=== PATIENT | female | born 1930 | race Caucasian/White ===

== ENCOUNTER 2017-03-17 08:10 | Inpatient (IN) ==
[2017-03-17] MEDS ORDERED: ONDANSETRON 4 MG/2 ML VIAL ONE (08:21)
[2017-03-17] MEDS ORDERED: ASPIRIN 325 MG TABLET PO STA (08:29)
[2017-03-17] MEDS ORDERED: SODIUM CHLORIDE 0.9% 1,000 ML IV STA (08:29)
[2017-03-17] MEDS ORDERED: ONDANSETRON 4 MG/2 ML VIAL IV STA (08:35)
[2017-03-17] MEDS ORDERED: ASPIRIN 325 MG TABLET ONE (08:45)
--- NOTE | 2017-03-17 08:46 | EKG Report ---
Stationary ECG Study [facility] ER Test Date: 03/17/2017 8:44:25 AM Pat Name: STEPHEN XIAO Department: Room: Gender: F Customer Service Analyst: : [id number] Requested by: Ivone Lieberman Order Number: [id number] Reading MD: EDER BRUNSON Intervals [place] Rate: 91 P: 999 VT: 0 QRS: 50 QRSD: 88 T: -87 QT: 379 QTc: 428 Interpretive Statements ATRIAL FIBRILLATION ST DEVIATION AND MODERATE T-WAVE ABNORMALITY, CONSIDER INFEROLATERAL Electronically Signed On 03-18-17 14:08:15 CDT by EDER BRUNSON [email or web address]
[2017-03-17 09:10] LABS: Basophils % 0.3 % (0.0-0.8); Eosinophils # 0.1 10*3/uL (0.0-0.87); Eosinophils % 0.6 % (0.00-10.9); Hematocrit 37.1 VOL% (35.7-47.0); Hemoglobin 11.7 GM/DL (12.0-16.0); Immature Granulocytes % 3.5 %; Immature Granulocytes Absolute 0.43 #; Lymphocytes # 0.3 10*3/uL (1.4-4.0); Lymphocytes % 2.3 % (21.3-54.2); Mean Corpuscular HGB Conc 31.5 GM/DL (32-36); Mean Corpuscular Hemoglobin 28 PG (27-34); Mean Corpuscular Volume 89.8 FL (87-102); Monocytes # 0.3 10*3/uL (0.11-0.8); Monocytes % 2.5 % (1.7-12.7); Neutrophils # 11.2 10*3/uL (1.4-7.4); Neutrophils % 90.8 % (38.7-73.9); Platelet Count 147 T/CUMM (130-400); Red Blood Count 4.13 MC/CUMM (3.8-5.5); Red Cell Distribution Width 16.6 % (9.3-17.3); White Blood Count 12.4 T/CUMM (4-12)
[2017-03-17 09:20] LABS: INR 1.5; PT Patient Result 16.7 SECS; Partial Thromboplastin Time 36.2 SECS (0-40)
[2017-03-17 09:33] LABS: Band Neutrophils 4 % (0-10); Eosinophils 1 % (0-10); Hypochromasia 1+; Lymphocytes 2 % (20-55); Ovalocytes Slight; Platelet Estimate Normal; Segmented Neutrophils 91 % (50-85); Total Cells Counted 100
[2017-03-17 09:34] LABS: Microcytosis Slight
[2017-03-17 09:39] LABS: Albumin 3.4 G/DL (3.4-5.0); Bilirubin,Total 1.7 MG/DL (0.2-1.0); Calcium 9.1 MG/DL (8.5-10.1); Magnesium 1.9 MG/DL (1.8-2.4); Osmolality,Calculated 291.7 MOS/KG (273-304); Potassium 3.4 MMOL/L (3.5-5.1)
--- NOTE | 2017-03-17 09:47 | XRay Report ---
Exam: XR chest 1V portable Indication: Chest pain, cardiomegaly Comparison study: 12/24/2016 Findings: Correctional and is mildly enlarged, similar to prior. Left chest pacemaker device or leads appear in similar position. Median sternotomy wiring is again noted. Mild elevation of the right hemidiaphragm is similar to prior. There is patchy perihilar and basilar interstitial opacities which are slightly increased from prior and may represent a degree of interstitial edema or developing interstitial infectious/inflammatory infiltrates. Degree of underlying scarring changes are also suspected. There is no pneumothorax. There is no significant pleural effusion. Impression: Similar mild cardiomegaly. Slight prominence of perihilar and basilar interstitial opacities may represent developing infectious/inflammatory infiltrates versus interstitial edema and/or chronic scarring changes. PROCEDURE INTERPRETED AT [facility] DEPARTMENT OF RADIOLOGY Final Report Signed by: Catalino Rebolledo
[2017-03-17] MEDS ORDERED: AZITHROMYCIN INJ 500 MG in SODIUM CHLORIDE 0.9% 250 ML IV STA (09:59)
--- NOTE | 2017-03-17 10:13 | Emergency Department Note ---
Estefani Vann Brittany, am scribing for, and in the presence of, Ivone Lieberman MD 09:03. Mio Vann Leanne, MD, personally performed the services described in this documentation, ascribed by Genesis Jara in my presence, and it is both accurate and complete . Arrival - Arrival Chief Complaint: Chest Pain ED Nursing Triage Note: PT COMPLAINS OF CP, +SOB,+NAUSEA, DESCRIBES PAIN TIGHTNESS BUT, PT IS EXTREMELY TENDER TO PALPATION TO ANT. CX WALL, ALSO CURRENTLY BEING TREATED FOR UTI Mode of Arrival: Stretcher Limitations: No Limitations Source: Patient, Family Time Seen by Provider: 03/17/17 08:25 - History of Present Illness HPI Narrative: This is an 86 y/o white female,who presents to the ED by EMS the c/o CP which started earlier this morning. Her daughter states pt is SOB with the chest pain. Her daughter reports she was recently Dx with a kidney stone. She has had nausea and vomiting which started yesterday. Pt reports lower abdomen pain as well. Pt is taking Coumadin . Pt has no other complaints/pain in the ED at this time. Pt has a PMHx of CVA, HTN, artificial heart valve replacement, dyslipidemia, GERD, back/neck problems, Degenerative Disk Disease, and anemia. Pt has had a cardiac surgery, cholecystectomy, spinal surgery, tonsilectomy, and hysterectomy. Pt has a family medical hx of heart disease and HTN. Pt denies a social Hx. Onset (ago): hour(s) (Started eariler this morning) Consistency: constant Severity: moderate Allergies/Adverse Reactions: Allergies Allergy/AdvReac Type Severity Reaction Status Date / Time Iodinated Contrast Media - Allergy Intermediate HIVES Verified 03/17/17 08:19 Oral and acetaminophen Allergy Unknown RASH Verified 03/17/17 08:19 [From Darvocet-N] duloxetine [From Cymbalta] Allergy Unknown Unknown/Unable Verified 03/17/17 08: 19 to obtain Procaine [From Novocain] Allergy Unknown Unknown/Unable Verified 03/17/17 08:19 to obtain propoxyphene Allergy Unknown RASH Verified 03/17/17 08:19 [From Darvocet-N] Donepezil [From Namzaric] Allergy Hallucinati Verified 03/17/17 08:19 ng levofloxacin [From Levaquin] Allergy Unknown/Unable Verified 03/17/17 08:19 to obtain memantine [From Namzaric] Allergy Hallucinati Verified 03/17/17 08:19 ng penicillin G Allergy RASH Verified 03/17/17 08:19 Home Medications: Home Medications Medication Instructions Recorded Confirmed Type Metoprolol Succinate Xl [Toprol Xl] 25 mg PO DAILY #30 tablet 09/16/15 12/24/16 Rx Pantoprazole Tab [Protonix Tab] 40 mg PO DAILY #30 tablet 09/16/15 12/24/16 Rx Furosemide Tab [Lasix Tab] 20 mg PO QAM 08/16/16 12/24/16 History Sertraline [Zoloft] 50 mg PO DAILY 08/16/16 12/24/16 History Cholecalciferol (Vitamin D3) 5,000 unit PO DAILY 12/24/16 12/24/16 History [Vitamin D3] Cyanocobalamin (Vitamin B-12) 2,500 mcg PO DAILY 12/24/16 12/24/16 History [Vitamin B12] Digoxin Tab [Lanoxin Tab] 0.125 mg PO DAILY 12/24/16 12/24/16 History Donepezil [Aricept] 10 mg PO DAILY 12/24/16 12/24/16 History HYDROcodone/ACETAMIN 10-325 [[place] 1 tablet PO Q6H PRN 12/24/16 12/24/16 History 10-325] Losartan [Cozaar] 25 mg PO QAM 12/24/16 12/24/16 History Acetaminophen Tab [Tylenol Tab] 325 mg PO Q4H PRN #0 tablet 12/26/16 Rx Enoxaparin [Lovenox] 40 mg SUBCUT Q12H 7 Days 12/26/16 Rx Warfarin [Coumadin] 2 mg PO DAILY@1800 #30 tablet 12/26/16 Rx HYDROcodone/ACETAMIN 5-325 [[place] 1 tablet PO Q6H #10 tablet 01/21/17 Rx 5-325] Medical,Surgical,& Family Hx - Medical History Cardio: History of: Cardiac Dysrhythmia (associated with valve replacement), Hypertension, Cardiovascular Problems (artificial heart valve) Neurology: History of: Cerebrovascular Accident (09/2014) HEENT: History of: Ear Problem (stopped up since cva) Endocrine: History of: Dyslipidemia, Endocrine Problems (thyroid nodule) Gastrointestinal: History of: GERD Musculoskeletal: History of: Back/Neck Problems, Degenerative Disk Disease (c2 c3 spinal fusion), Musculoskeletal Problems (bursa right hip, rotator cuff repair) Hematology: History of: Anemia, Bleeding Problems (vaginal hemmorrage 08/2014) - Surgical History Cardiac Surgeries: Sugical HX of: Cardiac Surgery (valve replacement) HEENT Surgeries: Surgical HX of: Tonsilectomy & Adenoidectomy Abdominal Surgeries: Surgical HX of: Cholecystectomy Reproductive Surgeries: Surgical HX of;: Hysterectomy Orthopedic Surgeries: Surgical HX of;: Spinal Surgery (c2 c3 fusion) - Family History Family History: Reports;: Family Heart Disease, Family Hypertension - Social History Smoking Status: Never smoker Exam Vital Signs: Vital Signs Temperature 99 F 03/17/17 08:31 Pulse Rate 88 03/17/17 08:31 Respiratory Rate 20 03/17/17 08:31 Blood Pressure 139/76 03/17/17 08:31 O2 Sat by Pulse Oximetry 100 03/17/17 08:12 - General General appearance: alert, in no apparent distress - Head Head exam: Present: atraumatic, normocephalic, normal inspection - Eye Eye exam: Present: normal appearance, PERRL, EOMI. Absent: nystagmus, miosis, mydriasis - ENT ENT exam: Present: normal exam, normal oropharynx, mucous membranes moist, TM's normal bilaterally, normal external ear exam - Neck Neck exam: Present: normal inspection, full ROM, trachea midline. Absent: tenderness, meningismus, lymphadenopathy, thyromegaly - Chest Chest inspection: Present: normal inspection, symmetric chest wall rise. Absent : tenderness, rash, abscess - Respiratory Respiratory exam: Present: normal lung sounds bilaterally. Absent: prolonged expiratory phase, rales, respiratory distress, rhonchi, stridor, wheezes - Cardiovascular Cardiovascular exam: Present: regular rate, normal rhythm, normal heart sounds. Absent: murmur, rubs, gallop, clicks, JVD - Abdominal Exam Abdominal exam: Present: soft, tenderness (Suppra-pubic tenderness), normal bowel sounds. Absent: distention, guarding, rebound, rigidity - Rectal Exam Rectal exam: Present: deferred - Extremities Exam Extremities exam: Present: normal inspection, full ROM, normal capillary refill. Absent: tenderness, pedal edema, joint swelling, calf tenderness - Back Exam Back exam: Present: normal inspection, full ROM. Absent: tenderness, muscle spasm, rashes - Neurological Exam Neurological exam: Present: alert, oriented X3, CN II-XII intact. Absent: motor sensory deficit - Psychiatric Psychiatric exam: Present: normal affect, normal mood. Absent: depressed, agitated, anxious, flat affect, manic - Skin Skin exam: Present: warm, dry, intact, normal color. Absent: rash, cyanosis, diaphoresis, erythema, pallor, mottled Course Course Narrative: enzymes neg. early pna. given azithromycin. admit. Results - Labs CBC & BMP: 03/17/17 09:03 03/17/17 09:03 Lab Results: I have reviewed the patients labs - EKG EKG results: interpreted by DOROTHEAD - Impressions afib, no st changes - Diagnostic Findings Procedure: Chest x-ray: report reviewed by me (Similar mild cardiomegaly. Slight prominence of perihilar nad basilar interstitial opacities may represent developing infectious/inflammatory infiltrates versus interstitial edema and/or chronic scarring changes. ) Disposition Clinical Impression: Pneumonia, Chest pain, Heart valve replaced Case discussed with: patient Additional Instructions: admit to hospitalist
[2017-03-17 10:43] LABS: Apearance,Urine CLEAR (Clear); Bilirubin,Urine Negative (Negative); Blood, Urine Negative (Negative); Glucose,Urine (UA) Negative (Negative); Ketones,Urine Negative (Negative); Mucus,Urine Occasional /LPF (Occasional); Nitrite,Urine Negative (Negative); Protein,Urine 30 MG/DL; RBC,Urine 16 /HPF (0-4); Urine Color Yellow (Yellow); Urine Specific Gravity 1.016 (1.001-1.035); Urine Urobilinogen < 2.0 EU/DL (0.2-1.0); WBC,Urine 13 /HPF (0-6)
[2017-03-17] MEDS ORDERED: DOCUSATE SODIUM 100 MG CAPSULE PO PRN (11:13)
[2017-03-17] MEDS ORDERED: ZALEPLON 5 MG CAPSULE PO PRN (11:13)
[2017-03-17] MEDS ORDERED: LACTULOSE 20 GM/30 ML UDCUP PO PRN (11:13)
[2017-03-17] MEDS ORDERED: PROMETHAZINE 25 MG TABLET PO PRN (11:13)
[2017-03-17] MEDS ORDERED: AZITHROMYCIN 500 MG VIAL IV ONE (11:19)
--- NOTE | 2017-03-17 11:27 | Hospitalist History & Physical ---
Assessment and Plan - Time spent with patient Time spent with patient: Greater than 30 minutes (1) Pneumonia Status: Acute Assessment and plan: CXR reveals slight prominence of perihilar and basilar interstitial opacities which may represent developing infectious/inflammatory infiltrates versus interstitial edema. Patient has been started on Zithromax 500 IV daily. Repeat CXR in 48 hours. Current Visit: Yes (2) Atrial fibrillation Status: Acute Current Visit: No (3) Mechanical heart valve present Status: Chronic Assessment and plan: Continue coumadin 2mg daily Current Visit: No (4) Nausea vomiting and diarrhea Status: Acute Assessment and plan: Patient complaining of generalized tenderness to palpation. Denies bleeding per rectum. Abdominal CT Current Visit: No (5) UTI (urinary tract infection) Status: Acute Assessment and plan: Patient currently being treated with macrobid. Continue treatment plan. Current Visit: No (6) Chest pain Status: Acute Assessment and plan: CP reproducible to palpation and upon coughing. Likely musculoskeletal and/or pleuritic in etiology. Treat underlying infection and add analgesics as necessary. Current Visit: Yes History of Present Illness Chief complaint: CP/SOB History of present illness: Ms. Olguin is a 86 year old female with a past medical history of CVA, hypertension, CHF with PM, mitral valve replacement with [place] valve, dyslipidemia, GERD who presents to the ED today with complaints of chest pain with onset earlier this morning. The patient is accompanied by her daughter and granddaughter who assisted with much of the history. Patient states that she felt weak this morning and began to experience chest pain which she rates 7/10. She did not take anything to relieve the pain before arriving at the ER. Patient reports chest tenderness, generalized abdominal pain and weakness. She denies headache, blurry vision, current palpitations. The family reports the patient has been experiencing nausea/vomiting with varying bouts of diarrhea for approximately 2 weeks now. She is followed by Dr. Gusman at [facility] who prescribed promethazine and lomotil with little effect. She's also been having syncopal episodes due to orthostatic hypotension for which Dr. Gusman has held her antihypertensives until the 28 of March. Patient is currently being treated for a UTI with macrobid. Lab findings reveal WBC 12.4, Hgb 11.7, Hct 37.1, INR 1.5 Na 145, K 3.4, Cl 107 , BUN 24, Cr 1.00, serum glucose 101. UA shows trace leukocytes with WBCs and occasional mucous. Troponins are negative. Previous echocardiogram from August 2016 shows and EF of 55% without obvious wall abnormality. After discussing this with Dr. Appiah, the patient will be admitted to the hospital medicine service for further evaluation and treatment. Home Medications Medication Instructions Recorded Confirmed Type Furosemide Tab [Lasix Tab] 20 mg PO QAM 08/16/16 12/24/16 History Sertraline [Zoloft] 50 mg PO DAILY 08/16/16 12/24/16 History Cholecalciferol (Vitamin D3) 5,000 unit PO DAILY 12/24/16 12/24/16 History [Vitamin D3] Cyanocobalamin (Vitamin B-12) 2,500 mcg PO DAILY 12/24/16 12/24/16 History [Vitamin B12] Digoxin Tab [Lanoxin Tab] 0.125 mg PO DAILY 12/24/16 12/24/16 History Donepezil [Aricept] 10 mg PO DAILY 12/24/16 12/24/16 History HYDROcodone/ACETAMIN 10-325 [[place] 1 tablet PO Q6H PRN 12/24/16 12/24/16 History 10-325] Losartan [Cozaar] 25 mg PO QAM 12/24/16 12/24/16 History Acetaminophen Tab [Tylenol Tab] 325 mg PO Q4H PRN #0 tablet 12/26/16 Rx Atorvastatin [Lipitor] 5 mg PO BEDTIME 03/17/17 03/17/17 History Clorazepate [Tranxene] 3.75 mg PO DAILY PRN 03/17/17 03/17/17 History Cyproheptadine Tab [Periactin Tab] 4 mg PO BID 03/17/17 03/17/17 History Diphenoxylate/Atrop 2.5-0.025 1 tablet PO Q6H 03/17/17 History [Lomotil Tab] Metoprolol Succinate Xl [Toprol Xl] 25 mg PO QAM 03/17/17 03/17/17 History Pantoprazole Tab [Protonix Tab] 40 mg PO QAM 03/17/17 03/17/17 History Warfarin [Coumadin] 2 mg PO QPM 03/17/17 03/17/17 History Allergies Allergy/AdvReac Type Severity Reaction Status Date / Time Iodinated Contrast Media - Allergy Intermediate HIVES Verified 03/17/17 08:19 Oral and acetaminophen Allergy Unknown RASH Verified 03/17/17 08:19 [From Darvocet-N] duloxetine [From Cymbalta] Allergy Unknown Unknown/Unable Verified 03/17/17 08: 19 to obtain Procaine [From Novocain] Allergy Unknown Unknown/Unable Verified 03/17/17 08:19 to obtain propoxyphene Allergy Unknown RASH Verified 03/17/17 08:19 [From Darvocet-N] Donepezil [From Namzaric] Allergy Hallucinati Verified 03/17/17 08:19 ng levofloxacin [From Levaquin] Allergy Unknown/Unable Verified 03/17/17 08:19 to obtain memantine [From Namzaric] Allergy Hallucinati Verified 03/17/17 08:19 ng penicillin G Allergy RASH Verified 03/17/17 08:19 Medical,Surgical,& Family Hx - Medical History Cardio: History of: Cardiac Dysrhythmia (associated with valve replacement), Hypertension, Cardiovascular Problems (artificial heart valve) Neurology: History of: Cerebrovascular Accident (09/2014) HEENT: History of: Ear Problem (stopped up since cva) Endocrine: History of: Dyslipidemia, Endocrine Problems (thyroid nodule) Gastrointestinal: History of: GERD Musculoskeletal: History of: Back/Neck Problems, Degenerative Disk Disease (c2 c3 spinal fusion), Musculoskeletal Problems (bursa right hip, rotator cuff repair) Hematology: History of: Anemia, Bleeding Problems (vaginal hemmorrage 08/2014) - Surgical History Cardiac Surgeries: Sugical HX of: Cardiac Surgery (valve replacement) HEENT Surgeries: Surgical HX of: Tonsilectomy & Adenoidectomy Abdominal Surgeries: Surgical HX of: Cholecystectomy Reproductive Surgeries: Surgical HX of;: Hysterectomy Orthopedic Surgeries: Surgical HX of;: Spinal Surgery (c2 c3 fusion) - Family History Family History: Reports;: Family Heart Disease, Family Hypertension - Social History Smoking Status: Never smoker Frequency of Alcohol Use: None Marital Status: Lives With:: Alone Functional capacity: uses cane/walker - Constitutional Constitutional: Present: chills, frequent falls, weakness. Absent: headache(s) - EENT Eyes: Absent: blurry vision, loss of vision Ears: Absent: decreased hearing, ear pain - Cardiovascular Cardiovascular: Present: chest pain at rest, dyspnea, palpitations. Absent: edema, radiating jaw, neck or arm pain - Respiratory Respiratory: Present: cough, dyspnea, pain on inspiration. Absent: wheezing - Gastrointestinal Gastrointestinal: Present: abdominal pain, cramping. Absent: constipation, diarrhea - Genitourinary Genitourinary: Absent: dysuria, flank pain, hematuria - Musculoskeletal Musculoskeletal: Present: back pain. Absent: myalgias - Neurological Neurological: Present: memory loss, syncope - Psychiatric Psychiatric: Absent: anxiety, depression - Endocrine Endocrine: Present: cold intolerance, fatigue. Absent: heat intolerance - Hematologic/Lymphatic Hematologic/Lymphatic: Present: easy bleeding, easy bruising Exam - Constitutional Vitals: Period Temp Pulse Resp BP Sys/[place] Pulse Ox Last 24 Hr 99 F-99 F 88-88 20-20 139-139/76-76 100 Exam: General appearance: normal weight, no acute distress - Head Head exam: Present: normocephalic, atraumatic - Eye Eye exam: Present: EOMI. Absent: conjunctival injection, nystagmus Pupils: Present: KELBY, normal accommodation - ENT ENT exam: Present: normal exam, normal external ear exam - Neck Neck exam: Present: normal inspection. Absent: lymphadenopathy, tenderness, thyromegaly - Respiratory Respiratory exam: Present: clear to auscultation bilaterally. Absent: rales, rhonchi, wheezes - Cardiovascular Cardiovascular exam: Present: regular rate and rhythm. Absent: carotid bruit, gallop, rubs - GI/Abdominal GI/Abdominal exam: Present: normal bowel sounds, tender to palpation, soft Absent: ascites, distended, mass - Extremities Exam Extremities exam: Present: normal inspection, normal capillary refill. Absent: edema - Back Exam Back exam: Absent: CVA tenderness (L), CVA tenderness (R) - Neurological Exam Neurological exam: Present: alert, oriented X3 - Psychiatric Psychiatric exam: Present: normal affect, normal mood - Skin Skin exam: Present: normal color, warm, dry Results - Labs CBC & BMP: 03/17/17 09:03 03/17/17 09:03 Lab Results: I have reviewed the past 24 hour labs
[2017-03-17] MEDS ORDERED: AZITHROMYCIN INJ 500 MG in SODIUM CHLORIDE 0.9% 250 ML IV SCH (11:30)
[2017-03-17] MEDS ORDERED: ONDANSETRON 4 MG/2 ML VIAL IV PRN (12:27)
[2017-03-17] MEDS ORDERED: cefTRIAXone 1,000 MG in SODIUM CHLORIDE 0.9% 100 ML IV SCH (12:30)
[2017-03-17] MEDS ORDERED: CLORAZEPATE 3.75 MG TABLET PO PRN (12:41)
[2017-03-17] MEDS ORDERED: ACETAMINOPHEN 325 MG TABLET PO PRN (12:41)
[2017-03-17] MEDS: PANTOPRAZOLE 40 MG VIAL IV SCH (13:42)
[2017-03-17] MEDS: POTASSIUM CHLORIDE 20 MEQ TABLET PO PRN ×3 (13:42→17:25)
--- NOTE | 2017-03-17 14:03 | EKG Report ---
Stationary ECG Study [facility] Test Date: 03/17/2017 2:02 PM Pat Name: STEPHEN XIAO Department: Room: 284 Gender: F Privacy Manager: FÁTIMA : 1930 Requested by: Ivone Lieberman Order Number: [id number] Reading MD: MONIE MILLER Intervals [place] Rate: 73 P: 999 TN: 0 QRS: 43 QRSD: 97 T: -89 QT: 375 QTc: 400 Interpretive Statements ATRIAL FIBRILLATION WITH ABERRANT CONDUCTION OR VENTRICULAR PREMATURE COMPLEXES ST DEVIATION AND MODERATE T-WAVE ABNORMALITY, CONSIDER LATERAL ISCHEMIA ST DEVIATION AND MODERATE T-WAVE ABNORMALITY, CONSIDER INFERIOR ISCHEMIA Electronically Signed On 03-19-17 12:51:05 CDT by MONIE MILLER [email or web address]
--- NOTE | 2017-03-17 14:35 | CT Report ---
CT abdomen pelvis wo con Indication: Midline lower abdomen/pelvic pain Comparison: Prior CT abdomen and pelvis 07/12/2011. Technique: CT of the abdomen and pelvis was performed without administration of intravenous contrast. Coronal and sagittal reformatted images were additionally created and submitted for review. The total DLP is 162.1 mGy*cm. Dose reduction: This CT exam was performed using one or more of the following dose reduction techniques: Automated exposure control, automated adjustment of the mA and/or KV according to patient size, or use of iterative reconstruction technique. Findings: Respectful and 9 posterior basilar atelectatic changes are noted bilaterally. There are also slightly more prominent ground glass opacities within the lung bases which may represent developing infectious/inflammatory infiltrates. A small left pleural effusion is also partially imaged. There is no pericardial effusion. Four-chamber cardiomegaly is suggested on this nongated study. Partially imaged pacemaker wires are noted. ABDOMEN: Liver/Gallbladder: No biliary ductal dilatation. No gallstones. Unenhanced liver appears grossly within normal limits. Spleen: No acute findings. Pancreas: No acute findings. Adrenals: Within normal limits in appearance. Kidneys: Both kidneys are symmetric in size with no evidence of nephrolithiasis or hydronephrosis. Bowel/mesentery: Small bowel is nondilated. There is no free fluid/air within the abdomen. There is no mesenteric adenopathy. Moderate stool throughout colon is noted which is otherwise nondilated. Retroperitoneum: No evidence of aortic aneurysm or significant retroperitoneal adenopathy. PELVIS: Bladder is mildly distended but otherwise grossly within normal limits in appearance. No free fluid in the dependent pelvis. There has been a prior hysterectomy. No adenopathy in the pelvis. BONES: No acute or suspicious osseous abnormalities are identified. Multilevel moderate to advanced degenerative changes and mild-moderate leftward scoliotic changes noted within the lumbar spine. IMPRESSION: 1. No acute abnormality within the abdomen or pelvis to explain patient's symptoms. 2. Bilateral basilar airspace opacities may represent developing infectious/inflammatory infiltrates and/or atelectasis. Small left pleural effusion. 03/17/2017 2:26 PM PROCEDURE INTERPRETED AT [facility] DEPARTMENT OF RADIOLOGY Final Report Signed by: Catalino Rebolledo
[2017-03-17] MEDS: DOXYCYCLINE HYCLATE INJ 100 MG in SODIUM CHLORIDE 0.9% 100 ML IV SCH (14:44)
[2017-03-17] MEDS: ALBUTEROL/IPRATROPIUM 3 ML NEB RESP TX SCH ×2 (15:23→19:15)
[2017-03-17] MEDS: WARFARIN 2 MG TABLET PO SCH (17:25)
[2017-03-17] MEDS ORDERED: WARFARIN 2 MG TABLET PO SCH (19:00)
[2017-03-17] MEDS: ATORVASTATIN 10 MG TABLET PO SCH (21:02)
[2017-03-18] MEDS: ALBUTEROL/IPRATROPIUM 3 ML NEB RESP TX SCH ×4 (00:48→10:52)
[2017-03-18] MEDS: DOXYCYCLINE HYCLATE INJ 100 MG in SODIUM CHLORIDE 0.9% 100 ML IV SCH ×2 (00:59→14:07)
[2017-03-18 05:09] LABS: Basophils % 0.1 % (0.0-0.8); Eosinophils % 0.4 % (0.00-10.9); Hematocrit 28.4 VOL% (35.7-47.0); Immature Granulocytes % 2.3 %; Immature Granulocytes Absolute 0.18 #; Lymphocytes # 0.6 10*3/uL (1.4-4.0); Lymphocytes % 7.2 % (21.3-54.2); Mean Corpuscular HGB Conc 31.7 GM/DL (32-36); Mean Corpuscular Hemoglobin 29 PG (27-34); Mean Corpuscular Volume 90.4 FL (87-102); Mean Platelet Volume 11.5 FL (9.6-12.0); Monocytes # 0.3 10*3/uL (0.11-0.8); Monocytes % 4.1 % (1.7-12.7); Neutrophils # 6.7 10*3/uL (1.4-7.4); Neutrophils % 85.9 % (38.7-73.9); Platelet Count 127 T/CUMM (130-400); Red Blood Count 3.14 MC/CUMM (3.8-5.5); Red Cell Distribution Width 17.2 % (9.3-17.3); White Blood Count 7.8 T/CUMM (4-12)
[2017-03-18 05:33] LABS: Hypochromasia 1+; Microcytosis 1+
[2017-03-18 05:34] LABS: Ovalocytes Slight; Platelet Estimate Adequate
[2017-03-18 05:48] LABS: Calcium 8.6 MG/DL (8.5-10.1); Osmolality,Calculated 291.7 MOS/KG (273-304); Potassium 4.7 MMOL/L (3.5-5.1)
--- NOTE | 2017-03-18 07:52 | XRay Report ---
XR chest 2V Indication: SOB Comparison: Chest x-ray dated March 17, 2017 Technique: Frontal and lateral views of the chest. Findings: Continued mild cardiomegaly status post sternotomy. Cardiac pacemaker apparatus again noted. There is nonspecific prominence of lung markings suspicious for interstitial pulmonary edema. Chronic/fibrotic change and interstitial pneumonia may have similar appearance. Small bilateral pleural fluid. Visualized osseous and surrounding soft tissue structures appear grossly unchanged.. Diffuse osteopenia. IMPRESSION: As above. PROCEDURE INTERPRETED AT [facility] DEPARTMENT OF RADIOLOGY Final Report Signed by: Dr Florentino Lux
[2017-03-18] MEDS: PANTOPRAZOLE 40 MG VIAL IV SCH (08:40)
[2017-03-18] MEDS: DIGOXIN 0.125 MG TABLET PO SCH (08:41)
[2017-03-18] MEDS: CHOLECALCIFEROL 1,000 UNIT TABLET PO SCH (08:41)
[2017-03-18] MEDS: METOPROLOL SUCCINATE XL 25 MG TABLET PO SCH (08:42)
[2017-03-18] MEDS: SERTRALINE 50 MG TABLET PO SCH (08:42)
[2017-03-18] MEDS: CYANOCOBALAMIN 500 MCG TABLET PO SCH (08:42)
[2017-03-18] MEDS: FUROSEMIDE 20 MG TABLET PO SCH (08:43)
[2017-03-18] MEDS: DONEPEZIL 10 MG TABLET PO SCH (08:43)
[2017-03-18] MEDS ORDERED: PANTOPRAZOLE 40 MG TABLET PO SCH (09:00)
--- NOTE | 2017-03-18 13:45 | Hospitalist Progress Note ---
Assessment and Plan (1) Chest pain Status: Acute Assessment and plan: 1)chest pain- tender to palpation yesterday, not so much today. troponins ok. She had a spell of trembling last night that may have been associated with PVCs , though what I could find looked more like paced beats. consult to cardiology re:CP and ?PVCs. She had a dose of azithro in ER, which could have contributed to PVCs. 2)?pneumonia- clinically she has no respiratory complaints- no fever, only occ cough, no shortness of breath. She has been on lots of antibiotics lately. change nebs to PRN, change doxy to po. 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 It is 2.0 today- goal closer to 2.5 to 3.5. 5)nausea and vomiting and diarrhea- seem to have started with treatment of UTI, though they have stopped now. stop antibiotics. 6)UTI ruled out 7)dispo- regular diet, consult to PT and OT. Current Visit: Yes (2) Chronic anticoagulation Status: Acute Current Visit: No (3) Unexplained night sweats Status: Acute Current Visit: No (4) A-fib Status: Chronic Current Visit: No Qualifiers: Atrial fibrillation type: chronic Qualified Code(s): I48.2 - Chronic atrial fibrillation (5) Nausea vomiting and diarrhea Status: Acute Current Visit: No (6) H/O mitral valve replacement Status: Acute Current Visit: No Hospitalist: Subjective Interval history: Mrs Olguin did nto have a good night. As usual she had sweats several times and had to change her clothes and linens a couple of times. She also had a spell of feeling shaky and the nurse told her she was having PVCs, but not enough in a row to worry. She is hungry this morning and wants a regular tray. Seh has nto had nausea or vomiting or diarrhea here as she was doing at home. Of note she has been on several antibiotics recently that could be contributing to her GI symptoms. Her UCx is negative and her sputum culture grew normal reji. She denies respiratory symptoms except for stopping breathing at night as noted by her daughter. Exam - Constitutional Vitals: Period Temp Pulse Resp BP Sys/Minaya Pulse Ox Last 24 Hr 97.6 F-99 F 63-88 16-20 108-137/48-65 96-100 General appearance: no acute distress, under weight - Head Head exam: Present: normocephalic, atraumatic - Eye Eye exam: Present: EOMI. Absent: scleral icterus Pupils: Present: KELBY - Respiratory Respiratory exam: Present: clear to auscultation bilaterally - Cardiovascular Cardiovascular exam: Present: regular rate and rhythm - GI/Abdominal GI/Abdominal exam: Present: normal bowel sounds, soft. Absent: tenderness - Extremities Exam Extremities exam: Absent: edema - Neurological Exam Neurological exam: Present: alert, oriented X3 - Skin Skin exam: Present: warm, dry Results - Labs CBC & BMP: 03/18/17 04:46 03/18/17 04:46 Lab Results: I have reviewed the past 24 hour labs (tele strips reviewed- I see a fib with some vetricularly paced beats) - Diagnostic Findings Procedure: Chest x-ray: image reviewed by me, report reviewed by me (about the same, mild inf v edema v scarring)
[2017-03-18] MEDS ORDERED: ALBUTEROL/IPRATROPIUM 3 ML NEB RESP TX PRN (13:53)
--- NOTE | 2017-03-18 17:20 | Cardiology Consult Note ---
Assessment and Plan (1) Atypical chest pain Status: Acute Assessment and plan: See plan of care listed below. Current Visit: Yes (2) Anemia Status: Acute Assessment and plan: See plan of care listed below. Current Visit: No (3) Atrial fibrillation Status: Chronic Assessment and plan: See plan of care listed below. Current Visit: No (4) Chronic anticoagulation Status: Chronic Assessment and plan: See plan of care listed below. Current Visit: No (5) Debility Status: Chronic Assessment and plan: See plan of care listed below. Current Visit: No (6) H/O mitral valve replacement Status: Chronic Assessment and plan: See plan of care listed below. Current Visit: No (7) HTN (hypertension) Status: Chronic Assessment and plan: See plan of care listed below. Current Visit: No (8) Nausea vomiting and diarrhea Status: Acute Assessment and plan: See plan of care listed below. Current Visit: Yes (9) History of pacemaker Status: Chronic Assessment and plan: See plan of care listed below. Current Visit: Yes (10) Abnormal EKG Status: Acute Assessment and plan: See plan of care listed below. 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 Tru Zhang in the remote past PCP: Dr. Gusman at [facility] [place] Ms. Olguin is a 86 year old female without known history of coronary artery disease, followed by Dr. Gil Zhang. Patient presented to the emergency department yesterday with complaints of chest pain, abdominal pain and nausea/ vomiting. 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 Patient has never been seen by a [employer] specialist. Most recent echocardiogram was performed in August 2016 which revealed ejection fraction of 55%. Patient presented to [facility] yesterday afternoon with complaints of chest pain, abdominal pain and nausea vomiting. She reports that she has been on antibiotics for a recently diagnosed UTI. While taking antibiotic therapy, she developed diarrhea, abdominal pain and nausea. On Saturday, she began vomiting and subsequently developed chest pain Saturday morning. She describes her pain as a sharp pain located to her left chest. She denies exertional component. It is not accompanied with shortness of breath , nausea, vomiting or diaphoresis. She reports that her chest pain is worsened with deep breathing and coughing. She also reports that it is exacerbated by certain positions. She is unable to identify any alleviating factors. She is also unable to rate her pain. Her pain is nonradiating. Yesterday, her chest discomfort was concerning for her and her daughter so she presented to [facility] emergency department to be further evaluated. She was then admitted under hospitalist's service and housed in the telemetry floor. Cardiology was then consulted for further evaluation of patient's chest discomfort and possible PVCs. Patient was seen and examined on telemetry. She is currently without chest pain , heaviness and tightness. Troponin has been negative 2. Upon exam, patient' s chest pain is reproducible to light palpation. Telemetry has been reviewed, it does appear that patient was having intermittent atrial and ventricular pacing rather than PVCs. We will continue to monitor patient on the quality assurance monitor body. H&H is 9.0 and 28.4. INR 2.0. BNP only mildly elevated at 210. Continue to cycle cardiac biomarkers and EKGs. I will further discuss this patient with Dr. Lu and await his further recommendations. ASSESSMENT/PLAN: 1. ATYPICAL CHEST PAIN - Patient's chest pain is atypical in nature. It is reproducible to light palpation, cough and deep breathing. I have offered to treat patient's chest wall pain. She politely declined. Troponin has been negative 2. At this point, we will continue to cycle cardiac biomarkers and monitor patient's EKG. Will further discuss with Dr. Lu and await his recommendations. 2. CHRONIC ATRIAL FIBRILLATION - Patient has chronic atrial fibrillation. Rate is controlled. She is chronically anticoagulated with Coumadin. INR 2.0. Continue digoxin and beta-isela. 3. CHRONIC ANTICOAGULATION - Patient takes Coumadin [address] [facility] mitral valve. INR today is 2.0. We will continue patient's current dose of Coumadin and monitor INR daily and adjust as needed throughout her hospital stay. 4. HISTORY OF MVR - Continue Coumadin. Daily INR. 5. ABNORMAL EKG - Patient does have abnormal EKG with T-wave abnormality inferioaterally. At this point, we will monitor patient with daily EKGs and continue to cycle cardiac biomarkers as patient does not have chest pain concerning for angina and patient may not be a great candidate for cardiac catheterization as she is demented and 86 years of age. I have discussed this with Dr. Lu and he agrees. Further plan and addendum to follow per Dr. dodson. 6. NAUSEA, VOMITING AND DIARRHEA - Most likely secondary to antibiotic treatment for UTI. These are now been discontinued. Defer further management to attending. 7. HISTORY OF DUAL CHAMBER PM - Patient has a dual-chamber pacemaker placed in 2015 after developing tachybradycardia syndrome. Pacemaker is functioning appropriately. Telemetry has been reviewed, it does appear that patient was having intermittent atrial and ventricular pacing rather than PVCs. We will continue to monitor patient on the quality assurance monitor body. Patient is intermittently pacing. 8. POSSIBLE PNEUMONIA - Clinically she has no respiratory complaints. She is being treated empirically with p.o. doxycycline. Continue as needed duo nebs. 9. ANEMIA -H&H is 9 and 28.4. No overt bleeding is noted. I will check stool for occult blood and continue to monitor with daily CBC. Further plan and addendum to follow per Dr. Lu. CC: Marilin Appiah MD - Home Medications and Allergies Home Medications: Home Medications Medication Instructions Recorded Confirmed Type Furosemide Tab [Lasix Tab] 20 mg PO QAM 08/16/16 03/17/17 History Sertraline [Zoloft] 50 mg PO QAM 08/16/16 03/17/17 History Cholecalciferol (Vitamin D3) 5,000 unit PO QAM 12/24/16 03/17/17 History [Vitamin D3] Cyanocobalamin (Vitamin B-12) 2,500 mcg PO QAM 12/24/16 03/17/17 History [Vitamin B12] Digoxin Tab [Lanoxin Tab] 0.125 mg PO QAM 12/24/16 03/17/17 History Donepezil [Aricept] 10 mg PO QAM 12/24/16 03/17/17 History HYDROcodone/ACETAMIN 10-325 [Veblen 1 tablet PO Q6H PRN 12/24/16 03/17/17 History 10-325] Losartan [Cozaar] 25 mg PO QAM 12/24/16 03/17/17 History Acetaminophen Tab [Tylenol Tab] 325 mg PO Q4H PRN #0 tablet 12/26/16 03/17/17 Rx Atorvastatin [Lipitor] 5 mg PO BEDTIME 03/17/17 03/17/17 History Clorazepate [Tranxene] 3.75 mg PO DAILY PRN 03/17/17 03/17/17 History Cyproheptadine Tab [Periactin Tab] 4 mg PO BID 03/17/17 03/17/17 History Diphenoxylate/Atrop 2.5-0.025 1 tablet PO Q6H PRN 03/17/17 03/17/17 History [Lomotil Tab] Metoprolol Succinate Xl [Toprol Xl] 25 mg PO QAM 03/17/17 03/17/17 History Pantoprazole Tab [Protonix Tab] 40 mg PO QAM 03/17/17 03/17/17 History Warfarin [Coumadin] 2 mg PO QPM 03/17/17 03/17/17 History Allergies/Adverse Reactions: Allergies Allergy/AdvReac Type Severity Reaction Status Date / Time Iodinated Contrast Media - Allergy Intermediate HIVES Verified 03/17/17 08:19 Oral and acetaminophen Allergy Unknown RASH Verified 03/17/17 08:19 [From Darvocet-N] duloxetine [From Cymbalta] Allergy Unknown Unknown/Unable Verified 03/17/17 08: 19 to obtain Procaine [From Novocain] Allergy Unknown Unknown/Unable Verified 03/17/17 08:19 to obtain propoxyphene Allergy Unknown RASH Verified 03/17/17 08:19 [From Darvocet-N] Donepezil [From Namzaric] Allergy Hallucinati Verified 03/17/17 08:19 ng levofloxacin [From Levaquin] Allergy Unknown/Unable Verified 03/17/17 08:19 to obtain memantine [From Namzaric] Allergy Hallucinati Verified 03/17/17 08:19 ng penicillin G Allergy RASH Verified 03/17/17 08:19 - Constitutional Constitutional: Present: as per HPI, chills, fatigue, frequent falls, weakness. Absent: fever(s), headache(s), weight gain, weight loss - Cardiovascular Cardiovascular: Present: chest pain at rest, palpitations. Absent: chest pain with activity, claudication, diaphoresis, dyspnea, dyspnea on exertion, edema, radiating jaw, neck or arm pain, lightheadedness, orthopnea, PND - Respiratory Respiratory: Present: cough, pain on inspiration. Absent: wheezing, snoring, change in phlegm color - Gastrointestinal Gastrointestinal: Present: diarrhea, nausea, vomiting. Absent: abdominal pain, coffee ground emesis, hematemesis, hematochezia, jaundice - Neurological Neurological: Present: frequent falls. Absent: abnormal speech, behavioral changes, dizziness, headache(s), syncope Medical,Surgical,& Family Hx - Medical History Cardio: History of: Cardiac Dysrhythmia (atrial fibrillation), Hypertension, Cardiovascular Problems (artificial heart valve) Neurology: History of: Cerebrovascular Accident (09/2014) Endocrine: History of: Dyslipidemia, Endocrine Problems (thyroid nodule) Musculoskeletal: History of: Back/Neck Problems, Degenerative Disk Disease (c2 c3 spinal fusion), Musculoskeletal Problems (bursa right hip, rotator cuff repair) Hematology: History of: Anemia - Surgical History Cardiac Surgeries: Sugical HX of: Cardiac Surgery (valve replacement) HEENT Surgeries: Surgical HX of: Tonsilectomy & Adenoidectomy Abdominal Surgeries: Surgical HX of: Cholecystectomy Reproductive Surgeries: Surgical HX of;: Hysterectomy Orthopedic Surgeries: Surgical HX of;: Spinal Surgery (c2 c3 fusion) - Family History Family History: Reports;: Family Heart Disease, Family Hypertension - Social History Smoking Status: Never smoker Frequency of Alcohol Use: None Type of Drug Use: None Physical Examination Vital Signs Temp Pulse Resp BP Pulse Ox 99 F 88 20 139/76 100 03/17/17 08:12 03/17/17 08:12 03/17/17 08:12 03/17/17 08:12 03/17/17 08:12 Other: General: Appears well with no apparent distress. Pleasant and cooperative. Appears comfortable. HEENT: PERRL, normocephalic, atraumatic. Mucous membranes moist. No jaundice noted. Conjunctiva moist and clear, sclerae anicteric Neck: No JVD/HJR, no thyromegaly or lymphadenopathy noted. Cardiac: Irregular rhythm. Mechanical valve heart sounds appreciated. Chest wall: Tender to light palpation. Lungs: Clear to auscultation without accessory muscle use to assist the respiratory pattern. Abdomen: Soft, bowel sounds normoactive. Nontender and nondistended. No abdominal bruit or thrill noted. No masses noted. Extremities: No clubbing, cyanosis noted. No edema noted. Upper extremity pulses 2+. Lower extremity pulses 2+. Capillary refill less than 3 seconds. Skin: No unusual lesions or rashes. No skin breakdown appreciated. Neuro: Awake, alert and oriented 3. Moves all extremities well without hemiparesis or paralysis. No essential tremor is appreciated. Result/EKG - Labs CBC & BMP: 03/18/17 04:46 03/18/17 04:46 Lab Results: I have reviewed the past 24 hour labs Labs: Laboratory Results - last 24 hr 03/18/17 03/18/17 03/18/17 00:41 04:46 04:46 WBC 7.8 D RBC 3.14 L D Hgb 9.0 L D Hct 28.4 L MCV 90.4 MCH 29 MCHC 31.7 L RDW 17.2 Plt Count 127 L MPV 11.5 Neut % (Auto) 85.9 H Lymph % (Auto) 7.2 L [place] % (Auto) 4.1 Eos % (Auto) 0.4 Baso % (Auto) 0.1 Neut # (Auto) 6.7 Lymph # (Auto) 0.6 L [place] # (Auto) 0.3 Eos # (Auto) 0.0 Baso # (Auto) 0.0 Immature Gran % 2.3 Nucleated RBC % 0.0 Immature Gran # 0.18 Nucleated RBCs # 0.00 Platelet Estimate Adequate Hypochromasia 1+ Microcytosis 1+ Ovalocytes Slight INR PT Patient/Control Mix Sodium 145 Potassium 4.9 4.7 Chloride 112 H Carbon Dioxide 22 Anion Gap 15.7 H BUN 22 H Creatinine 0.90 GFR Calculation 46 BUN/Creatinine Ratio 24.00 H Glucose 113 H Calculated Osmolality 291.7 Calcium 8.6 03/18/17 04:46 WBC RBC Hgb Hct MCV MCH MCHC RDW Plt Count MPV Neut % (Auto) Lymph % (Auto) [place] % (Auto) Eos % (Auto) Baso % (Auto) Neut # (Auto) Lymph # (Auto) [place] # (Auto) Eos # (Auto) Baso # (Auto) Immature Gran % Nucleated RBC % Immature Gran # Nucleated RBCs # Platelet Estimate Hypochromasia Microcytosis Ovalocytes INR 2.0 PT Patient/Control Mix 22.0 D Sodium Potassium Chloride Carbon Dioxide Anion Gap BUN Creatinine GFR Calculation BUN/Creatinine Ratio Glucose Calculated Osmolality Calcium
[2017-03-18] MEDS: WARFARIN 2 MG TABLET PO SCH (18:20)
[2017-03-18 18:56] LABS: Troponin I Only < 0.015 NG/ML (0.00-0.045)
[2017-03-18] MEDS: ATORVASTATIN 10 MG TABLET PO SCH (21:37)
[2017-03-18] MEDS: DOXYCYCLINE HYCLATE 100 MG CAPSULE PO SCH (21:37)
[2017-03-19 05:25] LABS: Basophils % 0.3 % (0.0-0.8); Eosinophils # 0.1 10*3/uL (0.0-0.87); Eosinophils % 2.1 % (0.00-10.9); Hematocrit 28.4 VOL% (35.7-47.0); Hemoglobin 8.9 GM/DL (12.0-16.0); Immature Granulocytes % 0.6 %; Immature Granulocytes Absolute 0.04 #; Lymphocytes # 0.7 10*3/uL (1.4-4.0); Lymphocytes % 11.1 % (21.3-54.2); Mean Corpuscular HGB Conc 31.3 GM/DL (32-36); Mean Corpuscular Hemoglobin 28 PG (27-34); Mean Corpuscular Volume 89.6 FL (87-102); Mean Platelet Volume 11.7 FL (9.6-12.0); Monocytes # 0.3 10*3/uL (0.11-0.8); Monocytes % 4.9 % (1.7-12.7); Neutrophils # 5.3 10*3/uL (1.4-7.4); Platelet Count 154 T/CUMM (130-400); Red Blood Count 3.17 MC/CUMM (3.8-5.5); Red Cell Distribution Width 17.2 % (9.3-17.3); White Blood Count 6.6 T/CUMM (4-12)
[2017-03-19 05:40] LABS: INR 1.9
[2017-03-19 05:49] LABS: PT Patient Result 21.1 SECS
[2017-03-19 06:01] LABS: Calcium 9.1 MG/DL (8.5-10.1); Magnesium 1.9 MG/DL (1.8-2.4); Osmolality,Calculated 288.8 MOS/KG (273-304); Potassium 4.5 MMOL/L (3.5-5.1)
[2017-03-19 06:04] LABS: Troponin I Only 0.021 NG/ML (0.00-0.045)
--- NOTE | 2017-03-19 07:21 | EKG Report ---
Stationary ECG Study [facility] Test Date: 03/19/2017 7:21:02 AM Pat Name: STEPHEN XIAO Department: Room: 284 Gender: F Reinforcing Steel Erector: ERYN : [id number] Requested by: Vinita Delvalle Order Number: [id number] Reading MD: MONIE MILLER Intervals [place] Rate: 72 P: 999 CO: 0 QRS: 48 QRSD: 94 T: 247 QT: 351 QTc: 376 Interpretive Statements UNCERTAIN IRREGULAR RHYTHM ELECTRONIC VENTRICULAR PACEMAKER -- CONTOUR ANALYSIS BASED ON INTRINSIC RHYTHM LEFT VENTRICULAR HYPERTROPHY AND ST-T CHANGE Electronically Signed On 03-20-17 17:04:00 CDT by MONIE MILLER [email or web address]
[2017-03-19] MEDS ORDERED: WARFARIN 4 MG TABLET ONE (08:24)
[2017-03-19] MEDS: METOPROLOL SUCCINATE XL 25 MG TABLET PO SCH (09:02)
[2017-03-19] MEDS: FUROSEMIDE 20 MG TABLET PO SCH (09:02)
[2017-03-19] MEDS: DIGOXIN 0.125 MG TABLET PO SCH (09:04)
[2017-03-19] MEDS: PANTOPRAZOLE 40 MG VIAL IV SCH (09:04)
[2017-03-19] MEDS: DONEPEZIL 10 MG TABLET PO SCH (09:05)
[2017-03-19] MEDS: SERTRALINE 50 MG TABLET PO SCH (09:05)
[2017-03-19] MEDS: DOXYCYCLINE HYCLATE 100 MG CAPSULE PO SCH (09:24)
[2017-03-19] MEDS: CHOLECALCIFEROL 1,000 UNIT TABLET PO SCH (10:47)
[2017-03-19] MEDS: CYANOCOBALAMIN 500 MCG TABLET PO SCH (10:47)
--- NOTE | 2017-03-19 11:39 | Discharge Summary ---
<Aly Price - Last Filed: 03/19/17 11:01> Hospital Course - Hospital Course Hospital Course: This is a 86 year old female that presented to the ED at [facility] on March 17, 2017 for evaluation of chest pain. The patient has a very complex medical history significant for cerebrovascular accident, hypertension, congestive heart failure, mitral valve regurgitation, dyslipidemia , and GERD. The patient has a surgical history significant for mitral valve replacement ([place] valve placement). The patient reported the onset of symptoms on the morning of presentation. She rated the pain at 7 out of 10 and reports that she did not take anything to relieve the pain. In addition she reported chest tenderness, abdominal pain and generalized weakness. The patient is normally followed by Dr. Cui at [place] [facility]. She reports that she had been seeing him for 2 weeks prior to this encounter for bouts of diarrhea, urinary tract infection and nausea and vomiting; in which she was prescribed Promethazine, Macrobid and Lomotil Lomotil, with little to no relief. In addition, the patient was experiencing multiple syncopal episode secondary to orthostatic hypotension. At the time of ED encounter, labs were obtained which were significant for the following: WBC 12.4, Hgb 11.7, Hct 37.1, INR 1.5 Na 145, K 3.4, Cl 107, BUN 24, Cr 1.00, serum glucose 101. UA shows trace leukocytes with WBCs and occasional mucous. Troponins are negative. Chest x-ray was obtained which revealed mild cardiomegaly, slight prominence of left perihilar and basilar interstitial opacities which represent developing infectious or inflammatory infiltrates versus interstitial edema or chronic scarring changes. CT abdomen and pelvis reported no acute abnormality within the abdomen or pelvis to explain the patient's symptoms, bilateral basilar airspace opacities may represent developing infectious/inflammatory infiltrates and/or atelectasis, and small left pleural effusion. The patient was subsequently admitted to the hospitalist services for continuation of care. Empiric antibiotics were initiated. Serial troponins were obtained and were essentially benign. The patient was gently rehydrated and physical therapy was consulted to evaluate. The patient's condition improved. She is eating better. Cough has improved from being productive of green sputum to clear sputum. No fever. No chest pain or palpitations. Diarrhea resolved and she denies any melena or BRBPR or abd pain. Last BM was 6. Her condition is stable and she has not experience any significant overnight events. She has been weaned off oxygen. Clinically she appears appropriate for discharge to follow-up with her primary care physician Dr. Gusman in 1-2 weeks. Specialty Discharge - Follow Up or Referrals Follow up with: Domo Lu MD [Physician] - (Appointment with Dr. Lu April 02 with EKG.) Earnestine Cui CNP [Physician] - 2 Weeks Discharge Plan - Discharge Data Disposition: Home Health Service - Discharge Medications New Doxycycline Hyclate Cap [Vibramycin Cap] 100 mg PO BID #14 capsule Lactobacillus Acidoph/Bulgar [Lactinex Chew Tab] 1 tablet PO BID #30 tablet Continue Furosemide Tab [Lasix Tab] 20 mg PO QAM Sertraline [Zoloft] 50 mg PO QAM Digoxin Tab [Lanoxin Tab] 0.125 mg PO QAM HYDROcodone/ACETAMIN 10-325 [[place] 10-325] 1 tablet PO Q6H PRN PRN Reason: Pain Cyanocobalamin (Vitamin B-12) [Vitamin B12] 2,500 mcg PO QAM Atorvastatin [Lipitor] 5 mg PO BEDTIME Pantoprazole Tab [Protonix Tab] 40 mg PO QAM Metoprolol Succinate Xl [Toprol Xl] 25 mg PO QAM Warfarin [Coumadin] 2 mg PO QPM Donepezil [Aricept] 10 mg PO QAM Cholecalciferol (Vitamin D3) [Vitamin D3] 5,000 unit PO QAM Acetaminophen Tab [Tylenol Tab] 325 mg PO Q4H PRN #0 tablet PRN Reason: fever, headache/body aches Clorazepate [Tranxene] 3.75 mg PO DAILY PRN PRN Reason: Anxiety Discontinued Diphenoxylate/Atrop 2.5-0.025 [Lomotil Tab] 1 tablet PO Q6H PRN PRN Reason: Diarrhea Losartan [Cozaar] 25 mg PO QAM Cyproheptadine Tab [Periactin Tab] 4 mg PO BID - Follow Up or Referral Follow Up: Domo Lu MD [Physician] - (Appointment with Dr. Lu April 02 with EKG.) - Forms/Instructions Exam - Constitutional Vitals: Period Temp Pulse Resp BP Sys/Minaya Pulse Ox Last 24 Hr 97.6 F-98.8 F 61-77 18-20 108-154/62-82 96-99 Discharge Results Procedures and tests throughout hospitalization: Pending Orders 03/17/17 10:30 Blood Culture Stat 03/19/17 07:33 Occult Blood, Stool Routine 03/20/17 04:00 BMP w/ Mg [Basic Metabolic Panel w/Mg] IN AM Basic Metabolic Panel IN AM Comp Blood Count Auto Diff IN AM Prothrombin Time INR IN AM 03/21/17 04:00 BMP w/ Mg [Basic Metabolic Panel w/Mg] IN AM CBC [Comp Blood Count Auto Diff] IN AM Prothrombin Time INR IN AM 03/22/17 04:00 BMP w/ Mg [Basic Metabolic Panel w/Mg] IN AM CBC [Comp Blood Count Auto Diff] IN AM Prothrombin Time INR IN AM Labs on day of discharge: Labs from last 24 hours 03/19/17 03/19/17 03/19/17 04:34 04:34 04:33 WBC RBC Hgb Hct MCV MCH MCHC RDW Plt Count MPV Neut % (Auto) Lymph % (Auto) [place] % (Auto) Eos % (Auto) Baso % (Auto) Neut # (Auto) Lymph # (Auto) [place] # (Auto) Eos # (Auto) Baso # (Auto) Immature Gran % Nucleated RBC % Immature Gran # Nucleated RBCs # INR 1.9 PT Patient/Control Mix 21.1 Sodium 144 Potassium 4.5 Chloride 109 H Carbon Dioxide 24 Anion Gap 15.5 H BUN 20 H Creatinine 0.80 GFR Calculation 53 BUN/Creatinine Ratio 25.00 H Glucose 103 Calculated Osmolality 288.8 Calcium 9.1 Magnesium 1.9 Total Creatine Kinase 20 L CK-MB (CK-2) 1.2 Troponin I 0.021 03/19/17 03/18/17 04:33 17:47 WBC 6.6 RBC 3.17 L Hgb 8.9 L Hct 28.4 L MCV 89.6 MCH 28 MCHC 31.3 L RDW 17.2 Plt Count 154 D MPV 11.7 Neut % (Auto) 81.0 H Lymph % (Auto) 11.1 L [place] % (Auto) 4.9 Eos % (Auto) 2.1 Baso % (Auto) 0.3 Neut # (Auto) 5.3 Lymph # (Auto) 0.7 L [place] # (Auto) 0.3 Eos # (Auto) 0.1 Baso # (Auto) 0.0 Immature Gran % 0.6 Nucleated RBC % 0.0 Immature Gran # 0.04 Nucleated RBCs # 0.00 INR PT Patient/Control Mix Sodium Potassium Chloride Carbon Dioxide Anion Gap BUN Creatinine GFR Calculation BUN/Creatinine Ratio Glucose Calculated Osmolality Calcium Magnesium Total Creatine Kinase 24 L CK-MB (CK-2) 1.1 Troponin I < 0.015 Preliminary micro results at discharge 03/17/17 10:30 Blood Culture - Preliminary Blood No growth at 1 day 03/17/17 09:03 Blood Culture - Preliminary Blood No growth at 1 day DS: Provider Date of admission: 03/17/17 10:38 Primary care physician: Milad Gusman MD Attending physician on admission: Marilin Appiah MD Consults: 03/17/17 12:38 Consult to Dietitian [CONS] Routine Reason for Dietitian: Dietary Consult 03/17/17 12:55 Consult to Wound Care - [place] [CONS] Routine Reason for Wound Care: Wound Care Management 03/18/17 11:29 Consult to Physical Therapy [CONS] Routine Reason for Physical Therapy: Evaluate and Treat Consult to Physician [CONS] Routine Comment: Consulting Provider: Cardiology - [facility] Consult to Specialist Group: Cardiology Person Notified: DEVORAH Date Notified: 03/18/17 Time Notified: 11:45 03/18/17 13:45 Consult to Physician [CONS] Routine Comment: sleep apnea Consulting Provider: Lizeth Black Consult Notification Comment: ORDER PUT IN TO SLEEP CENTER 03/18/17 14:32 Consult to Sleep Center [CONS] Routine Reason for Sleep Center: Sleep Center Physician Consult Comment: SLEEP APNEA Discharging clinician: Aly Price CNP <Anna Cruz - Last Filed: 03/19/17 15:33> Hospital Course - Time spent with patient Time with patient DS: Greater than 30 minutes (45 minutes) Diagnosis - Discharge Diagnosis (1) Near syncope Status: Resolved (2) Bradycardia Status: Resolved (3) Chronic anticoagulation Status: Chronic (4) Dementia Status: Chronic (5) Decreased hearing Status: Chronic (6) Decreased visual acuity Status: Chronic (7) Debility Status: Chronic (8) Sick sinus syndrome due to SA node dysfunction Status: Chronic (9) H/O mitral valve replacement Status: Chronic (10) Chest pain Status: Resolved (11) HTN (hypertension) Status: Chronic (12) Atrial fibrillation Status: Chronic Discharge Plan - Discharge Data Condition at Discharge: Stable Discharge Diet: heart healthy, low salt diet Activity: other (Weigh self daily and if weight increases or decreases by more than 3 pounds, notify MD.) Contact your physician if you experience:: fever over 101, Difficulty voiding, Redness or swelling, Nausea/Vomiting, Shortness of breath, Bleeding, pain uncontrolled by pain medications Exam - Constitutional Exam: Frail elderly thin female sitting in a chair in NAD irreg irreg 1/6 systolic M CTAB nonlabored Soft, NT, ND, +BS Warm no c/c/e
--- NOTE | 2017-03-19 11:56 | Cardiology Progress Note ---
Assessment and Plan (1) Atypical chest pain Status: Acute Assessment and plan: See plan of care listed below. Current Visit: Yes (2) Anemia Status: Acute Assessment and plan: See plan of care listed below. Current Visit: No (3) Atrial fibrillation Status: Chronic Assessment and plan: See plan of care listed below. Current Visit: No (4) Chronic anticoagulation Status: Chronic Assessment and plan: See plan of care listed below. Current Visit: No (5) Debility Status: Chronic Assessment and plan: See plan of care listed below. Current Visit: No (6) H/O mitral valve replacement Status: Chronic Assessment and plan: See plan of care listed below. Current Visit: No (7) HTN (hypertension) Status: Chronic Assessment and plan: See plan of care listed below. Current Visit: No (8) Nausea vomiting and diarrhea Status: Acute Assessment and plan: See plan of care listed below. Current Visit: Yes (9) History of pacemaker Status: Chronic Assessment and plan: See plan of care listed below. Current Visit: Yes (10) Abnormal EKG Status: Acute Assessment and plan: See plan of care listed below. Current Visit: Yes Cardiology - PN: Subj Interval history: Continuous Miner Operator: Patient has seen Dr. Tru Zhang in the remote past PCP: Dr. Gusman at [facility] SUMMARY: Patient presented to [facility] with complaints of atypical chest pain, nausea, vomiting and abdominal pain. She reports that she has been on antibiotics for a recently diagnosed UTI. While taking antibiotic therapy, she developed diarrhea, abdominal pain and nausea. On Saturday, she began vomiting and subsequently developed chest pain Saturday morning. Her chest pain was reproducible to light palpation, cough and deep breathing. Patient declined treatment for her chest wall pain she did not want to be on pain medications. Troponin has been negative. Patient does have abnormal EKG. Dr. dodson has reviewed and plans to monitor this as an outpatient. March 19, 2017 update: Patient was seen and examined on the telemetry unit. She has been discharged by the hospitalist service. This morning she is without chest pain, heaviness and tightness. She continues to decline treatment of her chest wall pain. EKG is unchanged from yesterday. Vital signs are stable. Patient will be discharged home today. She has been given an appointment to see Dr. Lu April 02 with EKG. ASSESSMENT/PLAN: 1. ATYPICAL CHEST PAIN - Patient's chest pain is atypical in nature. It continues to be reproducible to light palpation, cough and deep breathing. I have offered to treat patient's chest wall pain. She politely declined. Cardiac biomarkers remain negative. EKG is unchanged from yesterday however it remains abnormal. Dr. Lu planned to follow up with EKG as an outpatient as patient is not a great candidate for invasive ischemic workup due to dementia and advanced age. 2. CHRONIC ATRIAL FIBRILLATION - Patient has chronic atrial fibrillation. Rate is controlled. She is chronically anticoagulated with Coumadin. INR 2.0. Continue digoxin and beta-isela. 3. CHRONIC ANTICOAGULATION - Patient takes Coumadin [address] Joey's mitral valve. INR today is 1.9. Continue Coumadin. Recheck INR as an outpatient. 4. HISTORY OF MVR - Continue Coumadin. Daily INR. 5. ABNORMAL EKG - Patient does have abnormal EKG with T-wave abnormality inferioaterally. Patient's EKG is unchanged from yesterday. Cardiac biomarkers remain negative. Dr. Lu planned to follow up with this as an outpatient as patient does not have chest pain concerning for angina and patient may not be a great candidate for cardiac catheterization as she is demented and 86 years of age. I have discussed case with Dr. Lu he plans to follow with the patient April 02 with EKG. 6. NAUSEA, VOMITING AND DIARRHEA - Most likely secondary to antibiotic treatment for UTI. These are now been discontinued. Defer further management to attending. 7. 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 Pacemaker is functioning appropriately. Telemetry has been reviewed, it does appear that patient was having intermittent atrial and ventricular pacing rather than PVCs. We will continue to monitor patient on the desk monitor. Patient is intermittently pacing. 8. POSSIBLE PNEUMONIA - Clinically she has no respiratory complaints. She is being treated empirically with p.o. doxycycline. Continue as needed duo nebs. 9. ANEMIA - H&H is 8.9 and 28.4. No overt bleeding is noted. Stool was negative for occult blood. Further plan and addendum to follow per Dr. Lu. Exam (Progress Note) - Constitutional Vitals: Period Temp Pulse Resp BP Sys/Minaya Pulse Ox Last 24 Hr 97.7 F-98.8 F 62-77 18-20 108-154/52-82 97-99 Exam: General: Appears well with no apparent distress. Pleasant and cooperative. Appears comfortable. HEENT: PERRL, normocephalic, atraumatic. Mucous membranes moist. No jaundice noted. Conjunctiva moist and clear, sclerae anicteric Neck: No JVD/HJR, no thyromegaly or lymphadenopathy noted. Cardiac: Irregular rhythm. Mechanical valve heart sounds appreciated. Chest wall: Tender to light palpation. Lungs: Clear to auscultation without accessory muscle use to assist the respiratory pattern. Abdomen: Soft, bowel sounds normoactive. Nontender and nondistended. No abdominal bruit or thrill noted. No masses noted. Extremities: No clubbing, cyanosis noted. No edema noted. Upper extremity pulses 2+. Lower extremity pulses 2+. Capillary refill less than 3 seconds. Skin: No unusual lesions or rashes. No skin breakdown appreciated. Neuro: Awake, alert and oriented 3. Moves all extremities well without hemiparesis or paralysis. No essential tremor is appreciated. Result/EKG - Labs CBC & BMP: 03/19/17 04:33 03/19/17 04:34 Lab Results: I have reviewed the past 24 hour labs Labs: Laboratory Results - last 24 hr 03/18/17 03/19/17 03/19/17 17:47 04:33 04:33 WBC 6.6 RBC 3.17 L Hgb 8.9 L Hct 28.4 L MCV 89.6 MCH 28 MCHC 31.3 L RDW 17.2 Plt Count 154 D MPV 11.7 Neut % (Auto) 81.0 H Lymph % (Auto) 11.1 L [place] % (Auto) 4.9 Eos % (Auto) 2.1 Baso % (Auto) 0.3 Neut # (Auto) 5.3 Lymph # (Auto) 0.7 L [place] # (Auto) 0.3 Eos # (Auto) 0.1 Baso # (Auto) 0.0 Immature Gran % 0.6 Nucleated RBC % 0.0 Immature Gran # 0.04 Nucleated RBCs # 0.00 INR 1.9 PT Patient/Control Mix 21.1 Sodium Potassium Chloride Carbon Dioxide Anion Gap BUN Creatinine GFR Calculation BUN/Creatinine Ratio Glucose Calculated Osmolality Calcium Magnesium Total Creatine Kinase 24 L CK-MB (CK-2) 1.1 Troponin I < 0.015 03/19/17 03/19/17 04:34 04:34 WBC RBC Hgb Hct MCV MCH MCHC RDW Plt Count MPV Neut % (Auto) Lymph % (Auto) [place] % (Auto) Eos % (Auto) Baso % (Auto) Neut # (Auto) Lymph # (Auto) [place] # (Auto) Eos # (Auto) Baso # (Auto) Immature Gran % Nucleated RBC % Immature Gran # Nucleated RBCs # INR PT Patient/Control Mix Sodium 144 Potassium 4.5 Chloride 109 H Carbon Dioxide 24 Anion Gap 15.5 H BUN 20 H Creatinine 0.80 GFR Calculation 53 BUN/Creatinine Ratio 25.00 H Glucose 103 Calculated Osmolality 288.8 Calcium 9.1 Magnesium 1.9 Total Creatine Kinase 20 L CK-MB (CK-2) 1.2 Troponin I 0.021 Specialty Discharge - Follow Up or Referrals Follow up with: Domo Lu MD [Physician] - (Appointment with Dr. Lu April 02 with EKG.)
[2017-03-19 16:19] VITALS: BP 127/73
== END 2017-03-19 17:30 | disposition home health service (06) | DRG 194 ==
LOC: N.ED 08:10 → SUATTDRO 10:38 → N.EDINP 10:38 → N.TELEN 11:10
PROVIDERS: ADMIT Internal Medicine; ATTEND Pediatrics

== ENCOUNTER 2017-07-13 10:15 | Inpatient (IN) ==
--- NOTE | 2017-07-13 10:39 | Emergency Department Note ---
Arrival - Arrival Chief Complaint: Fall Stated Complaint: fall ED Nursing Triage Note: S/P FALL AT HOME ON -SEEN AT DR CLINTON OFFICE ON NEGATIVE HIP X-RAY-DX'WITH UTI PLACED ON MACROBID-NOW FAMILY REPORTS CONFUSION TODAY-VOMITING DIARRHEA-FRONTAL HEADACHE-PT A/OX2 DENIES SEVERE PAIN- NO SOB NOTED Mode of Arrival: Stretcher Limitations: Altered Mental Status Source: Patient, Family Time Seen by Provider: 07/13/17 10:31 - History of Present Illness HPI Narrative: This is an 87-year-old white female who is accompanied by family who states that the patient has been confused for 2 days. The patient had a fall last and was seen at a primary care office with the patient was diagnosed with a UTI and had a hip x-ray as well which was negative. The patient was placed on Macrobid. The family states that over the last couple of days the patient has become more confused by the things that she says and does. Family states that the patient has a history of 3 strokes, open heart surgery, and pacemaker implantation. He denies any fevers, or any other issues for this visit. Onset (ago): day(s) (2) Consistency: intermittent Severity: moderate Allergies/Adverse Reactions: Allergies Allergy/AdvReac Type Severity Reaction Status Date / Time Iodinated Contrast Media - Allergy Intermediate HIVES Verified 03/17/17 08:19 Oral and acetaminophen Allergy Unknown RASH Verified 03/17/17 08:19 [From Darvocet-N] duloxetine [From Cymbalta] Allergy Unknown Unknown/Unable Verified 03/17/17 08: 19 to obtain Procaine [From Novocain] Allergy Unknown Unknown/Unable Verified 03/17/17 08:19 to obtain propoxyphene Allergy Unknown RASH Verified 03/17/17 08:19 [From Darvocet-N] Donepezil [From Namzaric] Allergy Hallucinati Verified 03/17/17 08:19 ng levofloxacin [From Levaquin] Allergy Unknown/Unable Verified 03/17/17 08:19 to obtain memantine [From Namzaric] Allergy Hallucinati Verified 03/17/17 08:19 ng penicillin G Allergy RASH Verified 03/17/17 08:19 Home Medications: Home Medications Medication Instructions Recorded Confirmed Type Furosemide Tab [Lasix Tab] 20 mg PO QAM 08/16/16 03/17/17 History Sertraline [Zoloft] 50 mg PO QAM 08/16/16 03/17/17 History Cholecalciferol (Vitamin D3) 5,000 unit PO QAM 12/24/16 03/17/17 History [Vitamin D3] Cyanocobalamin (Vitamin B-12) 2,500 mcg PO QAM 12/24/16 03/17/17 History [Vitamin B12] Digoxin Tab [Lanoxin Tab] 0.125 mg PO QAM 12/24/16 03/17/17 History Donepezil [Aricept] 10 mg PO QAM 12/24/16 03/17/17 History HYDROcodone/ACETAMIN 10-325 [[place] 1 tablet PO Q6H PRN 12/24/16 03/17/17 History 10-325] Acetaminophen Tab [Tylenol Tab] 325 mg PO Q4H PRN #0 tablet 12/26/16 03/17/17 Rx Atorvastatin [Lipitor] 5 mg PO BEDTIME 03/17/17 03/17/17 History Clorazepate [Tranxene] 3.75 mg PO DAILY PRN 03/17/17 03/17/17 History Metoprolol Succinate Xl [Toprol Xl] 25 mg PO QAM 03/17/17 03/17/17 History Pantoprazole Tab [Protonix Tab] 40 mg PO QAM 03/17/17 03/17/17 History Warfarin [Coumadin] 2 mg PO QPM 03/17/17 03/17/17 History Doxycycline Hyclate Cap 100 mg PO BID #14 capsule 03/19/17 Rx [Vibramycin Cap] Lactobacillus Acidoph/[place] 1 tablet PO BID #30 tablet 03/19/17 Rx [Lactinex Chew Tab] Review of System - Review of System 12 point system: reviewed and no additional remarkable complaints except as stated - Review of System Constitutional: Present: as per HPI. Absent: chills, fever Neurological: Present: as per HPI, headache, confusion Medical,Surgical,& Family Hx - Medical History Cardio: History of: Cardiac Dysrhythmia (atrial fibrillation), Hypertension, Cardiovascular Problems (artificial heart valve) Neurology: History of: Cerebrovascular Accident (09/2014) HEENT: History of: Ear Problem (stopped up since cva) Endocrine: History of: Dyslipidemia, Endocrine Problems (thyroid nodule) Gastrointestinal: History of: GERD Musculoskeletal: History of: Back/Neck Problems, Degenerative Disk Disease (c2 c3 spinal fusion), Musculoskeletal Problems (bursa right hip, rotator cuff repair) Hematology: History of: Anemia, Bleeding Problems (vaginal hemmorrage 08/2014) - Surgical History Cardiac Surgeries: Sugical HX of: Cardiac Surgery (valve replacement) HEENT Surgeries: Surgical HX of: Tonsilectomy & Adenoidectomy Abdominal Surgeries: Surgical HX of: Cholecystectomy Reproductive Surgeries: Surgical HX of;: Hysterectomy Orthopedic Surgeries: Surgical HX of;: Spinal Surgery (c2 c3 fusion) - Family History Family History: Reports;: Family Heart Disease, Family Hypertension - Social History Smoking Status: Never smoker Exam Physical Examination: - General General appearance: [alert, in mild distress] - Head Head exam: [Present: atraumatic, normocephalic, normal inspection] - Eye Eye exam: [Present: normal appearance, PERRL, EOMI] - ENT ENT exam: [Present: normal exam, normal oropharynx, mucous membranes moist, TM' s normal bilaterally, normal external ear exam] - Neck Neck exam: [Present: normal inspection, full ROM, trachea midline] - Chest Chest inspection: [Present: normal inspection, symmetric chest wall rise] - Respiratory Respiratory exam: [Present: normal lung sounds bilaterally] - Cardiovascular Cardiovascular exam: [Present: regular rate, irregular rhythm consistent with A- fib, normal heart sounds] - Abdominal Exam Abdominal exam: [Present: soft, normal bowel sounds] - Extremities Exam Extremities exam: [Present: normal inspection, full ROM] - Back Exam Back exam: [Present: normal inspection, full ROM] - Neurological Exam Neurological exam: [Present: alert, oriented X 2, when asked if she knows where she is she replies that she knows me and my family. There are no other neurological deficits that are noted] - Psychiatric Psychiatric exam: [Present: normal affect, normal mood] - Skin Skin exam: [Present: warm, dry, intact, normal color] Vital Signs: Vital Signs Temperature 97.9 F 07/13/17 10:23 Pulse Rate 76 07/13/17 11:26 Respiratory Rate 20 07/13/17 11:26 Blood Pressure 168/64 07/13/17 11:26 O2 Sat by Pulse Oximetry 94 L 07/13/17 11:26 Course - Consultations Consultation #1: I have discussed the case with Phani and hospitalist services, and he will come see the patient in nonurgent. Time: 12:31 Consultation #2: Jareth from hospitalist services is here to see the patient. Time: 13:14 Results - Labs CBC & BMP: 07/13/17 10:30 07/13/17 10:30 Disposition Clinical Impression: UTI (urinary tract infection), Altered mental status, Leukocytosis, Atrial fibrillation Case discussed with: patient's family Disposition: Still a Patient Condition: Stable
[2017-07-13 10:55] LABS: Basophils % 0.3 % (0.0-0.8); Hematocrit 36.3 VOL% (35.7-47.0); Hemoglobin 11.6 GM/DL (12.0-16.0); Immature Granulocytes % 0.8 %; Immature Granulocytes Absolute 0.11 #; Lymphocytes # 0.4 10*3/uL (1.4-4.0); Lymphocytes % 2.6 % (21.3-54.2); Mean Corpuscular Hemoglobin 30 PG (27-34); Mean Corpuscular Volume 93.8 FL (87-102); Mean Platelet Volume 11.4 FL (9.6-12.0); Monocytes # 0.6 10*3/uL (0.11-0.8); Monocytes % 4.2 % (1.7-12.7); Neutrophils # 13.2 10*3/uL (1.4-7.4); Neutrophils % 92.1 % (38.7-73.9); Platelet Count 123 T/CUMM (130-400); Red Blood Count 3.87 MC/CUMM (3.8-5.5); Red Cell Distribution Width 15.5 % (9.3-17.3); White Blood Count 14.3 T/CUMM (4-12)
[2017-07-13 10:59] LABS: Apearance,Urine Slightly Hazy (Clear); Blood, Urine Small mg/dL (Negative); Glucose,Urine (UA) 50 mg/dL (Negative); Hyaline Casts,Urine 1 /LPF (0-3); Ketones,Urine Negative (Negative); Mucus,Urine Occasional /LPF (Occasional); Nitrite,Urine Negative (Negative); Protein,Urine 100 MG/DL; RBC,Urine 2 /HPF (0-4); Squamous Epithelial Cell,Urine Occasional /HPF (0-10); Urine Color Amber (Yellow); Urine Specific Gravity 1.023 (1.001-1.035); WBC,Urine 6 /HPF (0-6)
[2017-07-13 11:01] LABS: Bilirubin,Urine Small mg/dL (Negative)
--- NOTE | 2017-07-13 11:04 | Order Completion Report ---
See report scanned to EMR
[2017-07-13 11:07] LABS: INR 2.6
--- NOTE | 2017-07-13 11:10 | CT Report ---
CT brain Indication: Confusion, headache Comparison: One March 2017 Technique: Axial CT imaging of the brain is performed without contrast with 3 mm increments. Findings: No evidence of hemorrhage, mass mass effect midline shift or acute infarct seen. There is moderate to severe diffuse cerebral atrophy. There are areas of decreased density seen within the white matter similar to previous. Otherwise the brain parenchyma attenuation and differentiation appears within normal limits. The ventricles and cisterns are normal in caliber. No cranial or skull base abnormality is identified. Impression: No evidence of acute process or interval change. This CT exam was performed using one or more the following dose reduction techniques: Automated exposure control, adjustment of the MA and/or KV according to patient size, or use of iterative reconstruction technique. PROCEDURE INTERPRETED AT [facility] DEPARTMENT OF RADIOLOGY Final Report Signed by: Dr. Jere Cabezas
[2017-07-13 11:14] LABS: PT Patient Result 27.5 SECS
[2017-07-13 11:22] LABS: Albumin 2.8 G/DL (3.4-5.0); Bilirubin,Total 2.5 MG/DL (0.2-1.0); Calcium 8.8 MG/DL (8.5-10.1); Potassium 3.8 MMOL/L (3.5-5.1); Total Protein 5.3 G/DL (6.4-8.3)
[2017-07-13 11:25] LABS: Troponin I Only 0.106 NG/ML (0.00-0.045)
--- NOTE | 2017-07-13 12:01 | XRay Report ---
XR chest 1V portable Indication: Cough Comparison: 18 March 2017 Findings: The heart and mediastinum are stable in size and configuration with cardiac surgery changes. Pacemaker device is unchanged in position. The pulmonary vascularity is slightly increased with bilateral increased interstitial lung density. No other lung infiltrates, effusions, pneumothorax or other abnormality is demonstrated. Impression: Findings suggest mild cardiac decompensation. PROCEDURE INTERPRETED AT [facility] DEPARTMENT OF RADIOLOGY Final Report Signed by: Dr. Jere Cabezas
[2017-07-13 12:19] LABS: Band Neutrophils 5 % (0-10); Eosinophils 1 % (0-10); Hypochromasia 1+; Lymphocytes 2 % (20-55); Platelet Estimate Adequate; Segmented Neutrophils 83 % (50-85); Total Cells Counted 100
--- NOTE | 2017-07-13 13:57 | Hospitalist History & Physical ---
<Richa Godoy - Last Filed: 07/13/17 15:23> Assessment and Plan (1) Hepatic encephalopathy Status: Acute Assessment and plan: Admit to med surg. Check stat ammonia. Salicylate and acetaminophen level. LFTs. Hepatitis panel. IVFs. CBC in am. Avoid liver toxic agents. Current Visit: Yes (2) Leukocytosis Status: Acute Assessment and plan: Obtain blood cultures. UA negative. CXR negative. Recheck cbc in am. Current Visit: Yes (3) Chronic anticoagulation Status: Acute Assessment and plan: Check INR in am. Pt. reported elevated INR last week. Current Visit: No (4) A-fib Status: Chronic Assessment and plan: Pt. on chronic anticoagulation. Current Visit: Yes Qualifiers: Atrial fibrillation type: chronic Qualified Code(s): I48.2 - Chronic atrial fibrillation (5) H/O mitral valve replacement Status: Chronic Current Visit: No History of Present Illness Chief complaint: altered mental status History of present illness: Ms. Olguin is a 87 year old white female with a history of GERD, hypertension, A. fib, artificial heart valve, CVA, dyslipidemia, thyroid nodule, degenerative disc disease, and anemia that presents to the ED today for further evaluation of altered mental status. Patient is accompanied by her granddaughter who serves as a historian. On Saturday, the granddaughter reported that the patient got in her car and went driving and got lost and had to be brought home by the neighbors. On , the patient suffered a fall at home (where she resides alone). She hit her head and landed on her back and also suffered hip pain. She was seen at Dr. Gusman's office and all scans were negative but patient was noted to have an UTI and started on Macrobid. Since that time, pt has become increasing confused. Today patient was brought in. Pt. was oriented to self but not time. Pt. denied any chest pain or shortness of breath but complained of back and hip pain. CXR was negative as was UA but pt. was noted to have an elevated WBC and elevated liver enzymes. Pt's case was discussed with ER physician and hospitalist Dr. Saleh. Pt. was admitted onto our service and will be further evaluated and treated. Home Medications Medication Instructions Recorded Confirmed Type Furosemide Tab [Lasix Tab] 20 mg PO QAM 08/16/16 07/13/17 History Sertraline [Zoloft] 100 mg PO QAM 08/16/16 07/13/17 History Cyanocobalamin (Vitamin B-12) 2,500 mcg PO QAM 12/24/16 07/13/17 History [Vitamin B12] Digoxin Tab [Lanoxin Tab] 0.125 mg PO QAM 12/24/16 07/13/17 History Donepezil [Aricept] 10 mg PO QAM 12/24/16 07/13/17 History HYDROcodone/ACETAMIN 10-325 [[place] 1 tablet PO Q6H PRN 12/24/16 07/13/17 History 10-325] Atorvastatin [Lipitor] 5 mg PO BEDTIME 03/17/17 07/13/17 History Clorazepate [Tranxene] 3.75 mg PO DAILY PRN 03/17/17 07/13/17 History Metoprolol Succinate Xl [Toprol Xl] 12.5 mg PO QAM 03/17/17 07/13/17 History Pantoprazole Tab [Protonix Tab] 40 mg PO QAM 03/17/17 07/13/17 History Warfarin [Coumadin] 1 mg PO QPM 03/17/17 07/13/17 History Nitrofurantoin Macro/[place] 100 mg PO BID 07/13/17 07/13/17 History [Macrobid] traMADol TAB [Ultram] 50 mg PO Q4H PRN 07/13/17 07/13/17 History Allergies Allergy/AdvReac Type Severity Reaction Status Date / Time Iodinated Contrast Media - Allergy Intermediate HIVES Verified 03/17/17 08:19 Oral and acetaminophen Allergy Unknown RASH Verified 03/17/17 08:19 [From Darvocet-N] duloxetine [From Cymbalta] Allergy Unknown Unknown/Unable Verified 03/17/17 08: 19 to obtain Procaine [From Novocain] Allergy Unknown Unknown/Unable Verified 03/17/17 08:19 to obtain propoxyphene Allergy Unknown RASH Verified 03/17/17 08:19 [From Darvocet-N] Donepezil [From Namzaric] Allergy Hallucinati Verified 03/17/17 08:19 ng levofloxacin [From Levaquin] Allergy Unknown/Unable Verified 03/17/17 08:19 to obtain memantine [From Namzaric] Allergy Hallucinati Verified 03/17/17 08:19 ng penicillin G Allergy RASH Verified 03/17/17 08:19 Medical,Surgical,& Family Hx - Medical History Cardio: History of: Cardiac Dysrhythmia (atrial fibrillation), Hypertension, Cardiovascular Problems (artificial heart valve) Neurology: History of: Cerebrovascular Accident (09/2014) HEENT: History of: Ear Problem (stopped up since cva) Endocrine: History of: Dyslipidemia, Endocrine Problems (thyroid nodule) Gastrointestinal: History of: GERD Musculoskeletal: History of: Back/Neck Problems, Degenerative Disk Disease (c2 c3 spinal fusion), Musculoskeletal Problems (bursa right hip, rotator cuff repair) Hematology: History of: Anemia, Bleeding Problems (vaginal hemmorrage 08/2014) - Surgical History Cardiac Surgeries: Sugical HX of: Cardiac Surgery (valve replacement) HEENT Surgeries: Surgical HX of: Tonsilectomy & Adenoidectomy Abdominal Surgeries: Surgical HX of: Cholecystectomy Reproductive Surgeries: Surgical HX of;: Hysterectomy Orthopedic Surgeries: Surgical HX of;: Spinal Surgery (c2 c3 fusion) - Family History Family History: Reports;: Family Heart Disease, Family Hypertension - Social History Smoking Status: Never smoker Frequency of Alcohol Use: None Type of Drug Use: None Marital Status: Lives With:: Alone Functional capacity: uses cane/walker 12 point system: reviewed and no additional remarkable complaints except as stated - Constitutional Constitutional: Absent: chills, fever(s) - EENT Eyes: Absent: blurry vision - Cardiovascular Cardiovascular: Absent: chest pain at rest, dyspnea on exertion - Gastrointestinal Gastrointestinal: Present: abdominal pain. Absent: nausea, vomiting - Genitourinary Genitourinary: Present: urinary incontinence - Neurological Neurological: Present: confusion, frequent falls, memory loss - Hematologic/Lymphatic Hematologic/Lymphatic: Present: easy bleeding, easy bruising Exam - Constitutional Vitals: Period Temp Pulse Resp BP Sys/Minaya Pulse Ox Last 24 Hr 97.9 F 76-79 20-20 168-172/64-79 94-94 General appearance: normal weight, no acute distress - Head Head exam: Present: normal inspection, normocephalic. Absent: atraumatic - Eye Eye exam: Present: EOMI Pupils: Present: KELBY - Respiratory Respiratory exam: Present: clear to auscultation bilaterally. Absent: wheezes - Cardiovascular Cardiovascular exam: Present: irregular rhythm - GI/Abdominal GI/Abdominal exam: Present: normal bowel sounds, soft. Absent: tenderness - Extremities Exam Extremities exam: Present: normal inspection. Absent: edema - Neurological Exam Neurological exam: Present: alert, oriented X3 - Psychiatric Psychiatric exam: Present: normal affect, normal mood - Skin Skin exam: Present: normal color, warm, dry, other (pt has bruised skin) Results - Labs CBC & BMP: 07/13/17 10:30 07/13/17 10:30 Lab Results: I have reviewed the past 24 hour labs <Mu Saleh - Last Filed: 07/13/17 17:19> History of Present Illness History of present illness: Patient seen and examined independently of ADMINISTRATIVE JUDGE Godoy, agree with history, assessment and plan as documented. Patient with known dementia now presents with acute mental status. Patient lives at home alone, she has a sitter that comes by daily. Her family reports an ongoing decreased appetite for about a year. She reports low back pain from her previous fall. During my exam she is oriented to person and place. A/P: Altered Mental Status- CT head without acute process, She does have leukocytosis with a left shift. No clear source of an infection as of yet. Will not start antibiotics tonight. Acute Kidney Injury- Possibly secondary to dehydration. Check renal u/s and urine electrolytes. Hydrate gently overnight Elevated liver enzymes- LFTs mildly elevated. Check ammonia, hepatitis panel, salicylate level. Recheck in am Exam - Constitutional Vitals: Period Temp Pulse Resp BP Sys/Minaya Pulse Ox Last 24 Hr 97.9 F-98 F 71-79 18-20 127-172/58-79 91-94 Results - Labs CBC & BMP: 07/13/17 10:30 07/13/17 10:30
[2017-07-13] MEDS ORDERED: INFLUENZA VIRUS VACCINE 0.5 ML SYRINGE IM ONE (14:53)
[2017-07-13] MEDS ORDERED: ONDANSETRON 4 MG/2 ML VIAL IV PRN (15:18)
[2017-07-13] MEDS: SODIUM CHLORIDE 0.9% 1,000 ML IV SCH (15:44)
[2017-07-13] MEDS ORDERED: ACETAMINOPHEN 325 MG TABLET PO PRN (16:58)
[2017-07-13] MEDS ORDERED: oxyCODONE IR 5 MG TABLET PO PRN (16:58)
[2017-07-13 16:59] LABS: Salicylate < 2.8 MG/DL (2.8-20)
[2017-07-13 17:08] LABS: Hemoglobin A1C 6.5 % (4.2-6.3)
[2017-07-13 17:14] LABS: Troponin I Only 0.078 NG/ML (0.00-0.045)
--- NOTE | 2017-07-13 17:30 | XRay Report ---
XR hip 2V RT Indication: Pain after falling injury Comparison: 24 August 2012 Findings: No evidence of fracture seen. The alignment of the joints appears normal. No degenerative change is present. No soft tissue abnormality is seen. Impression: No evidence of acute injury demonstrated PROCEDURE INTERPRETED AT [facility] DEPARTMENT OF RADIOLOGY Final Report Signed by: Dr. Jere Cabezas
--- NOTE | 2017-07-13 17:31 | XRay Report ---
XR lumbar spine AP/LAT Indication: Pain after injury Comparison: 21 July 2016 Findings: No fracture is seen. Vertebral body heights and alignment are normal. There is loss of disc space and degenerative change in moderate to severe at L2-3 and moderate at L1-2 and L3-4. Impression: No evidence of acute injury demonstrated. PROCEDURE INTERPRETED AT [facility] DEPARTMENT OF RADIOLOGY Final Report Signed by: Dr. Jere Cabezas
[2017-07-13] MEDS: WARFARIN 1 MG TABLET PO SCH (18:27)
[2017-07-13] MEDS: CLORAZEPATE 3.75 MG TABLET PO PRN (21:17)
[2017-07-13 23:01] LABS: Troponin I Only 0.062 NG/ML (0.00-0.045)
[2017-07-14 05:11] LABS: Basophils % 0.2 % (0.0-0.8); Eosinophils # 0.1 10*3/uL (0.0-0.87); Eosinophils % 0.5 % (0.00-10.9); Hematocrit 33.8 VOL% (35.7-47.0); Hemoglobin 10.9 GM/DL (12.0-16.0); Immature Granulocytes % 0.4 %; Immature Granulocytes Absolute 0.04 #; Lymphocytes # 0.7 10*3/uL (1.4-4.0); Lymphocytes % 6.9 % (21.3-54.2); Mean Corpuscular HGB Conc 32.2 GM/DL (32-36); Mean Corpuscular Hemoglobin 30 PG (27-34); Mean Corpuscular Volume 93.1 FL (87-102); Mean Platelet Volume 12.1 FL (9.6-12.0); Monocytes # 0.4 10*3/uL (0.11-0.8); Monocytes % 4.6 % (1.7-12.7); Neutrophils # 8.2 10*3/uL (1.4-7.4); Neutrophils % 87.4 % (38.7-73.9); Platelet Count 114 T/CUMM (130-400); Red Blood Count 3.63 MC/CUMM (3.8-5.5); Red Cell Distribution Width 15.5 % (9.3-17.3); White Blood Count 9.4 T/CUMM (4-12)
[2017-07-14 05:23] LABS: INR 2.1
[2017-07-14 05:27] LABS: PT Patient Result 22.4 SECS
[2017-07-14 05:46] LABS: Free T4 (Free Thyroxine) 1.19 NG/DL (0.76-1.46)
[2017-07-14 05:51] LABS: Calcium 8.8 MG/DL (8.5-10.1); Osmolality,Calculated 293.8 MOS/KG (273-304); Potassium 3.9 MMOL/L (3.5-5.1); Risk Ratio 5.72; Thyroid Stimulating Hormone 0.314 uIU/ml (0.358-3.74); VLDL CHOLESTEROL 19.2 MG/DL
[2017-07-14 05:54] LABS: Albumin 2.6 G/DL (3.4-5.0); Bilirubin,Direct 2.11 MG/DL (0.0-0.20); Bilirubin,Indirect 0.7 MG/DL (0.0-1.0); Bilirubin,Total 2.8 MG/DL (0.2-1.0)
[2017-07-14 06:08] LABS: Folate 17.9 NG/ML (5.4-24.0); Vitamin B12 > 2000 PG/ML (211-911)
[2017-07-14 07:28] LABS: Hypochromasia 1+; Macrocytosis 1+; Target Cells Slight
--- NOTE | 2017-07-14 08:29 | Order Completion Report ---
See report scanned to EMR
[2017-07-14] MEDS: CYANOCOBALAMIN 500 MCG TABLET PO SCH (08:48)
[2017-07-14] MEDS: METOPROLOL SUCCINATE XL 25 MG TABLET PO SCH (08:49)
[2017-07-14] MEDS: DIGOXIN 0.125 MG TABLET PO SCH (08:49)
[2017-07-14] MEDS: SERTRALINE 100 MG TABLET PO SCH (08:49)
[2017-07-14] MEDS: PANTOPRAZOLE 40 MG TABLET PO SCH (08:49)
[2017-07-14] MEDS ORDERED: FUROSEMIDE 20 MG TABLET PO SCH (09:00)
[2017-07-14] MEDS: SODIUM CHLORIDE 0.9% 1,000 ML IV SCH (11:02)
--- NOTE | 2017-07-14 13:20 | Hospitalist Progress Note ---
<Richa Godoy - Last Filed: 07/14/17 12:39> Assessment and Plan (1) Hepatic encephalopathy Status: Acute Assessment and plan: Admit to med surg. Check stat ammonia. Salicylate and acetaminophen level. LFTs. Hepatitis panel. IVFs. CBC in am. Avoid liver toxic agents. 07/14 Salicylate and tylenol level normal. Ammonia normal. LFT slightly improved today. Current Visit: Yes (2) Leukocytosis Status: Acute Assessment and plan: Obtain blood cultures. UA negative. CXR negative. Recheck cbc in am. 07/14 WBC today 9.4 Urine culture no growth. Current Visit: Yes (3) Chronic anticoagulation Status: Acute Assessment and plan: Check INR in am. Pt. reported elevated INR last week. 07/14 INR stable Current Visit: No (4) A-fib Status: Chronic Assessment and plan: Pt. on chronic anticoagulation. Current Visit: Yes Qualifiers: Atrial fibrillation type: chronic Qualified Code(s): I48.2 - Chronic atrial fibrillation (5) H/O mitral valve replacement Status: Chronic Current Visit: No Hospitalist: Subjective Interval history: Pt. seen and examined this morning with the daughter present at the bedside. Pt. is alert today but oriented only to time. Will order MRI to further evaluate. Pt. denies any pain. Daughter has concerns for her returning home alone. surgical services coordinator will be consulted. Exam - Constitutional Vitals: Period Temp Pulse Resp BP Sys/Minaya Pulse Ox Last 24 Hr 97.2 F-98 F 71-101 18-20 120-150/58-93 91-95 General appearance: no acute distress, under weight - Head Head exam: Present: normal inspection, normocephalic - Eye Eye exam: Present: EOMI Pupils: Present: KELBY - Respiratory Respiratory exam: Present: clear to auscultation bilaterally. Absent: wheezes - Cardiovascular Cardiovascular exam: Present: regular rate and rhythm - GI/Abdominal GI/Abdominal exam: Present: normal bowel sounds, soft. Absent: tenderness - Neurological Exam Neurological exam: Present: alert, altered - Psychiatric Psychiatric exam: Present: normal affect, normal mood - Skin Skin exam: Present: normal color, warm, dry Results - Labs CBC & BMP: 07/14/17 03:24 07/14/17 03:24 Lab Results: I have reviewed the past 24 hour labs <Mu Saleh - Last Filed: 07/14/17 15:40> Hospitalist: Subjective Interval history: Patient seen and examined independently of MESSAGE AND DELIVERY SERVICE PRICER Godoy, agree with history, assessment and plan as documented. Patient is oriented to person and place. She is more awake today. Will obtain MRI tomorrow, PT/OT. Exam - Constitutional Vitals: Period Temp Pulse Resp BP Sys/Minaya Pulse Ox Last 24 Hr 97.2 F-97.7 F 75-101 18-20 120-150/68-93 93-95 Results - Labs CBC & BMP: 07/14/17 03:24 07/14/17 03:24
--- NOTE | 2017-07-14 13:52 | Ultrasound Report ---
Renal ultrasound Indication: Acute renal failure Comparison: None available Findings: Kidneys are normal in size and echogenicity. No hydronephrosis or nephrolithiasis is seen. The right renal length is 8.9 cm. The left renal length is 10.2 cm. No free fluid or other abnormality is seen. Impression: No evidence of abnormality demonstrated. Ultrasound images stored and captured. PROCEDURE INTERPRETED AT [facility] DEPARTMENT OF RADIOLOGY Final Report Signed by: Dr. Jere Cabezas
[2017-07-14] MEDS: WARFARIN 1 MG TABLET PO SCH (18:04)
[2017-07-15] MEDS: CLORAZEPATE 3.75 MG TABLET PO PRN (00:45)
[2017-07-15 06:26] LABS: Basophils % 0.3 % (0.0-0.8); Eosinophils # 0.1 10*3/uL (0.0-0.87); Eosinophils % 1.4 % (0.00-10.9); Hematocrit 33.5 VOL% (35.7-47.0); Hemoglobin 10.8 GM/DL (12.0-16.0); Immature Granulocytes % 0.9 %; Immature Granulocytes Absolute 0.07 #; Lymphocytes # 0.7 10*3/uL (1.4-4.0); Lymphocytes % 9.5 % (21.3-54.2); Mean Corpuscular HGB Conc 32.2 GM/DL (32-36); Mean Corpuscular Hemoglobin 30 PG (27-34); Mean Platelet Volume 12.1 FL (9.6-12.0); Monocytes # 0.4 10*3/uL (0.11-0.8); Monocytes % 5.3 % (1.7-12.7); Neutrophils # 6.4 10*3/uL (1.4-7.4); Neutrophils % 82.6 % (38.7-73.9); Platelet Count 118 T/CUMM (130-400); Red Blood Count 3.64 MC/CUMM (3.8-5.5); Red Cell Distribution Width 15.4 % (9.3-17.3); White Blood Count 7.8 T/CUMM (4-12)
[2017-07-15 06:56] LABS: Calcium 8.5 MG/DL (8.5-10.1); Potassium 3.9 MMOL/L (3.5-5.1)
[2017-07-15] MEDS: SODIUM CHLORIDE 0.9% 1,000 ML IV SCH (06:59)
[2017-07-15 07:51] LABS: INR 1.7
[2017-07-15 08:14] LABS: Hepatitis A Ab IgM Quant 0.15 Index; Hepatitis A Ab IgM Result Negative (Negative); Hepatitis B Core IgM Quant 0.15 Index; Hepatitis B Core IgM Result Negative (Negative); Hepatitis B Surface Ag Quant < 0.10 Index; Hepatitis B Surface Ag Result Negative (Negative); Hepatitis C Virus Ab Quant 0.03 Index; Hepatitis C Virus Ab Result Negative (Negative)
[2017-07-15] MEDS: CYANOCOBALAMIN 500 MCG TABLET PO SCH (09:32)
[2017-07-15] MEDS: PANTOPRAZOLE 40 MG TABLET PO SCH (09:33)
[2017-07-15] MEDS: METOPROLOL SUCCINATE XL 25 MG TABLET PO SCH (09:33)
[2017-07-15] MEDS: DIGOXIN 0.125 MG TABLET PO SCH (09:34)
[2017-07-15] MEDS: SERTRALINE 100 MG TABLET PO SCH (09:34)
--- NOTE | 2017-07-15 10:30 | Case Mgmt Physician Query Form ---
TB Signs and Symptoms Screening ([place]) INSTRUCTIONS: To be completed annually on residents/staff with a significant Tuberculin Skin Test (TST) upon admission/hire or a prior significant TST. To be completed on all staff at hire. Please respond to each listed symptom with an (X) in either the "YES" or "NO" box. Do you currently have any of the following symptoms: YES NO ( ) (x ) A cough If yes, is it: ( ) Productive ( ) Non- productive ( ) (x ) Hemoptysis (spitting up blood) ( ) (x ) Chest pains ( ) (x ) Weight Loss ( ) (x ) Fever ( ) (x ) Night Sweats ( ) (x ) Weakness ( ) (x ) Loss of Appetite ( ) (x ) Difficulty Breathing If you answered YES" to any of the above questions, how long have symptoms been present? Comments: ALISIA
--- NOTE | 2017-07-15 12:58 | Magnetic Resonance Report ---
Exam: MRI brain without contrast Exam date: 07/15/2017 1217PM Indication: 87-year-old female with altered mental status, progressing confusion Comparison: October 08, 2014 Technique: Multiplanar, multisequence magnetic resonance imaging of the brain without intravenous contrast was performed in routine fashion. Axial, coronal and sagittal images submitted for interpretation Findings: Parenchyma: No intra or extra-axial hemorrhage. No mass effect or midline shift. Global atrophy with patchy and confluent T2/FLAIR hyperintense throughout the subcortical and deep white matter. Ventricles and sulci: Normal in size and configuration Posterior fossa: Cerebellum, brainstem and cervicomedullary junction are preserved Orbits and sinuses: Globes and orbits are intact. Periorbital and pericavernous spaces are normal. No paranasal sinus inflammatory changes. Sella: Pituitary is normal. Osseous: No abnormality of the skull base or calvarium is identified Impression: 1. Global atrophy with underlying microangiopathic small vessel ischemic changes. No acute intracranial abnormality PROCEDURE INTERPRETED AT [facility] DEPARTMENT OF RADIOLOGY Final Report Signed by: Mario Pennington MD
[2017-07-15] MEDS ORDERED: TUBERCULIN SKIN TEST 0.1 ML SYRINGE INTRADERM ONE (14:13)
--- NOTE | 2017-07-15 14:17 | Hospitalist Progress Note ---
Assessment and Plan (1) Dementia Status: Chronic Assessment and plan: Concern for AMS as well No signs of infection CT head without acute process MRI brain without acute process, does show global atrophy Current Visit: No (2) H/O mitral valve replacement Status: Chronic Assessment and plan: On coumadin Pharmacy to assist with dosing Current Visit: No (3) HTN (hypertension) Status: Chronic Current Visit: No (4) Atrial fibrillation Status: Chronic Assessment and plan: On coumadin Current Visit: No (5) Elevated liver enzymes Status: Acute Assessment and plan: Improving Current Visit: Yes Hospitalist: Subjective Interval history: Overnight patient with some confusion, pulled out her IV. Her daughter is at her bedside today. Working on swing bed placement Exam - Constitutional Vitals: Period Temp Pulse Resp BP Sys/Minaya Pulse Ox Last 24 Hr 97.1 F-98.6 F 71-86 16-97 137-153/68-87 93-96 General appearance: normal weight - Head Head exam: Present: normocephalic, atraumatic - Eye Eye exam: Present: EOMI Pupils: Present: KELBY - ENT ENT exam: Present: normal exam - Neck Neck exam: Present: normal inspection - Respiratory Respiratory exam: Present: clear to auscultation bilaterally. Absent: wheezes - Cardiovascular Cardiovascular exam: Present: regular rate and rhythm - GI/Abdominal GI/Abdominal exam: Present: normal bowel sounds, soft. Absent: tenderness, rebound - Extremities Exam Extremities exam: Present: normal inspection - Back Exam Back exam: Present: normal inspection - Neurological Exam Neurological exam: Present: alert - Psychiatric Psychiatric exam: Present: normal affect, normal mood - Skin Skin exam: Present: warm, intact Results - Labs CBC & BMP: 07/15/17 05:36 07/15/17 05:36
[2017-07-15] MEDS ORDERED: traZODone 50 MG TABLET PO PRN (14:25)
[2017-07-15] MEDS: WARFARIN 1 MG TABLET PO SCH (18:29)
[2017-07-16 07:20] LABS: Basophils # 0.1 10*3/uL (0.0-0.2); Basophils % 0.8 % (0.0-0.8); Eosinophils # 0.2 10*3/uL (0.0-0.87); Eosinophils % 2.3 % (0.00-10.9); Hematocrit 36.5 VOL% (35.7-47.0); Immature Granulocytes % 0.9 %; Immature Granulocytes Absolute 0.06 #; Lymphocytes # 1.1 10*3/uL (1.4-4.0); Lymphocytes % 16.9 % (21.3-54.2); Mean Corpuscular HGB Conc 32.9 GM/DL (32-36); Mean Corpuscular Hemoglobin 30 PG (27-34); Mean Corpuscular Volume 90.6 FL (87-102); Monocytes # 0.5 10*3/uL (0.11-0.8); Monocytes % 7.3 % (1.7-12.7); Neutrophils # 4.8 10*3/uL (1.4-7.4); Neutrophils % 71.8 % (38.7-73.9); Platelet Count 170 T/CUMM (130-400); Red Blood Count 4.03 MC/CUMM (3.8-5.5); Red Cell Distribution Width 15.3 % (9.3-17.3); White Blood Count 6.6 T/CUMM (4-12)
[2017-07-16 07:21] LABS: INR 1.5; PT Patient Result 16.1 SECS
[2017-07-16 07:50] LABS: Albumin 2.4 G/DL (3.4-5.0); Bilirubin,Direct 0.43 MG/DL (0.0-0.20); Bilirubin,Indirect 0.9 MG/DL (0.0-1.0); Bilirubin,Total 1.3 MG/DL (0.2-1.0); Calcium 8.7 MG/DL (8.5-10.1); Magnesium 1.9 MG/DL (1.8-2.4); Osmolality,Calculated 290.7 MOS/KG (273-304); Potassium 3.8 MMOL/L (3.5-5.1)
[2017-07-16] MEDS: SODIUM CHLORIDE 0.9% 1,000 ML IV SCH (09:07)
[2017-07-16] MEDS: SERTRALINE 100 MG TABLET PO SCH (09:59)
[2017-07-16] MEDS: DIGOXIN 0.125 MG TABLET PO SCH (09:59)
[2017-07-16] MEDS: METOPROLOL SUCCINATE XL 25 MG TABLET PO SCH (09:59)
[2017-07-16] MEDS: DONEPEZIL 10 MG TABLET PO SCH (09:59)
[2017-07-16] MEDS: CYANOCOBALAMIN 500 MCG TABLET PO SCH (09:59)
[2017-07-16] MEDS: PANTOPRAZOLE 40 MG TABLET PO SCH (09:59)
[2017-07-16] MEDS ORDERED: TUBERCULIN SKIN TEST 0.1 ML SYRINGE INTRADERM ONE (10:13)
--- NOTE | 2017-07-16 16:45 | Hospitalist Progress Note ---
Assessment and Plan (1) Dementia Status: Chronic Assessment and plan: Concern for AMS as well No signs of infection CT head without acute process MRI brain without acute process, does show global atrophy Current Visit: No (2) H/O mitral valve replacement Status: Chronic Assessment and plan: On coumadin Pharmacy to assist with dosing Current Visit: No (3) HTN (hypertension) Status: Chronic Current Visit: No (4) Atrial fibrillation Status: Chronic Assessment and plan: On coumadin Current Visit: No (5) Elevated liver enzymes Status: Acute Assessment and plan: Improving Current Visit: Yes Hospitalist: Subjective Interval history: No acute events overnight. Patient more awake today. Waiting on swing bed placement. Exam - Constitutional Vitals: Period Temp Pulse Resp BP Sys/Minaya Pulse Ox Last 24 Hr 97.5 F-98.5 F 63-79 16-20 135-154/73-93 94-95 General appearance: under weight - Head Head exam: Present: normocephalic, atraumatic - Eye Eye exam: Present: EOMI Pupils: Present: KELBY - ENT ENT exam: Present: normal exam - Neck Neck exam: Present: normal inspection - Respiratory Respiratory exam: Present: clear to auscultation bilaterally. Absent: rhonchi, wheezes - Cardiovascular Cardiovascular exam: Present: regular rate and rhythm - GI/Abdominal GI/Abdominal exam: Present: normal bowel sounds, soft. Absent: tenderness, rebound - Extremities Exam Extremities exam: Present: normal inspection - Back Exam Back exam: Present: normal inspection - Neurological Exam Neurological exam: Present: alert - Psychiatric Psychiatric exam: Absent: agitated, anxious - Skin Skin exam: Present: warm, intact Results - Labs CBC & BMP: 07/16/17 04:38 07/16/17 04:38
[2017-07-16] MEDS ORDERED: WARFARIN 1 MG TABLET PO SCH (18:00)
[2017-07-17 08:18] VITALS: BP 161/103
[2017-07-17] MEDS ORDERED: LACTOBACILLUS ACIDOPHILUS/BULGARICUS CAPLET PO SCH (09:00)
--- NOTE | 2017-07-17 09:36 | Discharge Summary ---
<Aly Price - Last Filed: 07/17/17 11:10> Hospital Course - Hospital Course Hospital Course: This is an 87-year-old female that presented to the ED at [facility] on the afternoon of July 13, 2017 for evaluation of altered mental status. Patient has a medical history significant for atrial fibrillation, hypertension, dementia, cerebrovascular accident, dyslipidemia, gastroesophageal reflux disease, degenerative disc disease, osteoarthritis, and anemia. The patient has a surgical history significant for valve replacement, tonsillectomy, adenoidectomy, cholecystectomy, hysterectomy, and cervical 2 through cervical 3 spinal fusion. At the time of ED presentation, the patient was noted to be grossly altered. The patient had family members at bedside and they served as historian. They reported that 4 days prior to presentation that the patient got lost while driving her car it had to be brought back home by her neighbors. Shortly thereafter, on July 11, the patient sustained a fall striking her head and sustaining an injury to her hip. The patient was brought to her primary care physician Dr. Milad Gusman's office where she was assessed and was noted to have a urinary tract infection. The patient was sent home and started on Macrobid. The patient's condition failed to improve and her mental status declined further prompting her family to present to the emergency room for further evaluation. The patient was assessed at the time of ED presentation. The patient was noted to be hypertensive with a blood pressure reported at 160/64. Labs were obtained which were significant for white blood cell count 14.3, hemoglobin 11.6 , platelet count 123, dioxide 33, BUN 36, creatinine 1.50, glucose 201, hemoglobin A1c 6.5, AST 23, ALT 209, alkaline phosphatase 122, troponin 0 0.106 , total protein 5.3, and albumin 2.8. Urinalysis was significant for urine blood small, urine nitrate negative, urine bilirubin small, urine urobilinogen 2.0, urine WBC 2, urine WBC 6, urine squamous epithelial cells occasional, hyaline casts 1, urine mucus occasional. CT head without contrast was unremarkable for the presence of any acute intracranial processes. Chest x-ray suggested mild cardiac decompensation. X-ray right hip was negative for any acute injury or evidence of fracture. X-ray lumbar spine was negative for any evidence of acute injury. The patient was subsequently admitted to the hospitalist service for continuation of care. CODE STATUS was discussed with the family at the time of admission. The patient was made a DO NOT RESUSCITATE per family request. Blood cultures were obtained at the time of admission and empiric antibiotic coverage was initiated. The patient's mental status remained altered. On July 15, 2017, the patient underwent MRI brain without contrast which was significant for global atrophy with underlying microangiopathic small vessel ischemic changes however, no acute intracranial abnormalities were noted. Renal ultrasound was ordered due to to the severity of the patient's renal function at the time of admission which was unremarkable for any evidence of abnormality. The patient's condition slowly improved. The patient's condition is stable. She has not experienced any significant overnight events. Today,, we feel that she is indeed appropriate for discharge to [facility] for continuation of care. Discharge Plan - Discharge Data Disposition: Disch/Xfer to Snf - Discharge Medications New traZODone [Desyrel] 25 mg PO BEDTIME PRN #30 tablet PRN Reason: Insomnia Continue Sertraline [Zoloft] 100 mg PO QAM Digoxin Tab [Lanoxin Tab] 0.125 mg PO QAM Cyanocobalamin (Vitamin B-12) [Vitamin B12] 2,500 mcg PO QAM Atorvastatin [Lipitor] 5 mg PO BEDTIME Pantoprazole Tab [Protonix Tab] 40 mg PO QAM Metoprolol Succinate Xl [Toprol Xl] 12.5 mg PO QAM Warfarin [Coumadin] 1 mg PO QPM Donepezil [Aricept] 10 mg PO QAM Clorazepate [Tranxene] 3.75 mg PO DAILY PRN PRN Reason: Anxiety traMADol TAB [Ultram] 50 mg PO Q4H PRN PRN Reason: Pain Discontinued Furosemide Tab [Lasix Tab] 20 mg PO QAM HYDROcodone/ACETAMIN 10-325 [[place] 10-325] 1 tablet PO Q6H PRN PRN Reason: Pain Nitrofurantoin Macro/[place] [Macrobid] 100 mg PO BID - Follow Up or Referral - Forms/Instructions Instructions: Dehydration (DC), Urinary Tract Infection in Women (DC), Leukocytosis (DC) Exam - Constitutional Vitals: Period Temp Pulse Resp BP Sys/[place]aya Pulse Ox Last 24 Hr 97.1 F-98.0 F 63-92 16-20 132-173/71-103 93-99 Discharge Results Procedures and tests throughout hospitalization: Pending Orders 07/13/17 13:00 Blood Culture Stat 07/18/17 04:00 Prothrombin Time INR IN AM Labs on day of discharge: Preliminary micro results at discharge 07/13/17 13:00 Blood Culture - Preliminary Blood No growth at 3 days 07/13/17 13:00 Blood Culture - Preliminary Blood No growth at 3 days DS: Provider Date of admission: 07/13/17 12:34 Primary care physician: Milad Gusman MD Attending physician on admission: Mu Saleh MD Consults: 07/13/17 14:47 Consult to Dietitian [CONS] Routine Reason for Dietitian: Diet Recommendations 07/14/17 14:00 Consult to Case Mgmt/Social Srvs [CONS] Routine Reason for Case Mgmt/Social Srvs: Discharge Planning Consult Comment: possible placement at facility. 07/14/17 15:40 Consult to Occupational Therapy [CONS] Routine Reason for Occupational Therapy: Evaluate and Treat Consult to Physical Therapy [CONS] Routine Reason for Physical Therapy: Evaluate and Treat 07/14/17 15:41 Consult to Pharmacy [CONS] Routine Reason for Pharmacy Consult: Other Comment: coumadin Discharging clinician: Aly Price CNP <Mu Saleh - Last Filed: 07/20/17 16:26> Hospital Course - Time spent with patient Time with patient DS: Less than 30 minutes Diagnosis - Discharge Diagnosis (1) Dementia Status: Chronic (2) H/O mitral valve replacement Status: Chronic (3) HTN (hypertension) Status: Chronic (4) Atrial fibrillation Status: Chronic (5) Elevated liver enzymes Status: Resolved Discharge Plan - Discharge Data Condition at Discharge: Stable Discharge Diet: advance to your usual diet Activity: as per physical therapy Hygiene: no restrictions Weight Bearing at Discharge: weight bear as tolerated Contact your physician if you experience:: fever over 101 Exam - Constitutional General appearance: under weight - Head Head exam: Present: normocephalic, atraumatic - Eye Eye exam: Present: EOMI Pupils: Present: KELBY - ENT ENT exam: Present: normal exam - Neck Neck exam: Present: normal inspection - Respiratory Respiratory exam: Present: clear to auscultation bilaterally - Cardiovascular Cardiovascular exam: Present: regular rate and rhythm - GI/Abdominal GI/Abdominal exam: Present: normal bowel sounds, soft. Absent: tenderness, rebound - Extremities Exam Extremities exam: Present: normal inspection - Back Exam Back exam: Present: normal inspection - Neurological Exam Neurological exam: Present: alert - Psychiatric Psychiatric exam: Present: normal affect, normal mood - Skin Skin exam: Present: warm, intact
[2017-07-17] MEDS: METOPROLOL SUCCINATE XL 25 MG TABLET PO SCH (09:57)
[2017-07-17] MEDS: CYANOCOBALAMIN 500 MCG TABLET PO SCH (09:57)
[2017-07-17] MEDS: SERTRALINE 100 MG TABLET PO SCH (09:59)
[2017-07-17] MEDS: DIGOXIN 0.125 MG TABLET PO SCH (09:59)
[2017-07-17] MEDS: DONEPEZIL 10 MG TABLET PO SCH (10:00)
[2017-07-17] MEDS: PANTOPRAZOLE 40 MG TABLET PO SCH (10:01)
--- NOTE | 2017-07-23 08:32 | Physician Query Form ---
CLICK EDIT DOCUMENT TO SELECT QUERY ANSWER --> OK --> SIGN Allie Isaac RN, CCDS Certified Clinical [employer] W) [phone] (f) [phone] [email or web address] PROVIDERS: Make your selection(s) from the choices in EACH section by typing an "x" and enter comments in the comment section. Please use your independent medical judgment in providing your response. This request does not imply that any particular answer is desired or expected. CLINICAL INDICATORS: (Providers should not edit this section) The medical record indicates that the patient was admitted with AMS, Ammonia Level of 12#, "mental status declined further prompting her family to present to the emergency room", while in the hospital "patient's mental status remained altered", "MRI brain without contrast which was significant for global atrophy with underlying microangiopathic small vessel ischemic changes however, no acute intracranial abnormalities were noted", "No signs of infection" and the patient has chronic Dementia. ACUITY: ( ) Acute ( ) Acute on Chronic ( X) Chronic ( ) Clinically unable to determine NATURE: ( ) Delirium due to general medical condition ( ) Dementia ( ) Encephalopathy ( ) Unconscious ( ) Transient level of awareness ( ) Comatose ( ) Locked-in State ( ) Persistent Vegetative State ( ) Other, please specify: ( ) Clinically unable to determine Please indicate the underlying cause of the altered mental status (CHECK ALL THAT APPLY): ( x) Baseline dementia ( ) Alzheimer's disease ( ) Parkinson's disease ( ) Lewy body dementia ( ) Acute stroke ( ) Late effect of stroke ( ) Reactive (from emotional stress, psychological trauma) ( ) Due to narcotics/other drugs ( ) Post procedural delirium ( ) Transient ischemic attack ( ) Generalized cerebral edema ( ) Normal pressure hydrocephalus ( ) Psychiatric illness ( ) Other, please specify: ( ) Clinically unable to determine Please indicate if there is an infection, sepsis, dehydration or specific organ failure that is causing the dementia. Be specific with clarifying the relationship between that process and the mental status change. COMMENTS: PLEASE ALSO DOCUMENT RESPONSE IN PROGRESS NOTES AND/OR DISCHARGE SUMMARY Use of terms such as suspected, likely, or probable (associated with a specific diagnosis that is being evaluated, monitored, or treated as if it exists) are acceptable and can be restated in the discharge summary if not ruled out. MTDD
--- NOTE | 2017-07-31 07:07 | Physician Query Form ---
CLICK EDIT DOCUMENT TO SELECT QUERY ANSWER --> OK --> SIGN Allie Isaac RN, CCDS Certified Clinical A[employer]iliary Equipment Tender W) [phone] (f) [phone] [email or web address] PROVIDERS: Make your selection(s) from the choices in EACH section by typing an "x" and enter comments in the comment section. Please use your independent medical judgment in providing your response. This request does not imply that any particular answer is desired or expected. CLINICAL INDICATORS: (Providers should not edit this section) The medical record indicates that the patient was admitted with AMS, Ammonia Level of 12#, "mental status declined further prompting her family to present to the emergency room", while in the hospital "patient's mental status remained altered", "MRI brain without contrast which was significant for global atrophy with underlying microangiopathic small vessel ischemic changes however, no acute intracranial abnormalities were noted", "No signs of infection" and the patient has chronic Dementia. ACUITY: ( ) Acute ( ) Acute on Chronic ( ) Chronic ( ) Clinically unable to determine NATURE: ( ) Delirium due to general medical condition ( ) Dementia ( ) Encephalopathy ( ) Unconscious ( ) Transient level of awareness ( ) Comatose ( ) Locked-in State ( ) Persistent Vegetative State ( ) Other, please specify: ( ) Clinically unable to determine Please indicate the underlying cause of the altered mental status (CHECK ALL THAT APPLY): ( ) Baseline dementia ( ) Alzheimer's disease ( ) Parkinson's disease ( ) Lewy body dementia ( ) Acute stroke ( ) Late effect of stroke ( ) Reactive (from emotional stress, psychological trauma) ( ) Due to narcotics/other drugs ( ) Post procedural delirium ( ) Transient ischemic attack ( ) Generalized cerebral edema ( ) Normal pressure hydrocephalus ( ) Psychiatric illness ( ) Other, please specify: ( ) Clinically unable to determine Please indicate if there is an infection, sepsis, dehydration or specific organ failure that is causing the dementia. Be specific with clarifying the relationship between that process and the mental status change. COMMENTS: PLEASE ALSO DOCUMENT RESPONSE IN PROGRESS NOTES AND/OR DISCHARGE SUMMARY Use of terms such as suspected, likely, or probable (associated with a specific diagnosis that is being evaluated, monitored, or treated as if it exists) are acceptable and can be restated in the discharge summary if not ruled out. MTDD
== END 2017-07-17 11:32 | DRG 683 ==
LOC: EDBD → EDUNIT# → N.ED 10:15 → N.EDINP 12:34 → N.2E 14:42
PROVIDERS: ADMIT Internal Medicine; ATTEND Internal Medicine

== ENCOUNTER 2017-08-17 16:56 | Inpatient (IN) ==
[2017-08-17] MEDS ORDERED: SODIUM CHLORIDE 0.9% 1,000 ML IV STA (17:21)
[2017-08-17] MEDS ORDERED: ONDANSETRON 4 MG/2 ML VIAL IV STA (17:32)
[2017-08-17] MEDS ORDERED: GENTAMICIN INJ 80 MG in SODIUM CHLORIDE 0.9% 100 ML IV STA (17:33)
[2017-08-17 18:13] LABS: Basophils # 0.1 10*3/uL (0.0-0.2); Basophils % 0.3 % (0.0-0.8); Eosinophils % 0.1 % (0.00-10.9); Hematocrit 37.2 VOL% (35.7-47.0); Hemoglobin 12.1 GM/DL (12.0-16.0); Immature Granulocytes % 1.1 %; Immature Granulocytes Absolute 0.17 #; Lymphocytes # 0.4 10*3/uL (1.4-4.0); Lymphocytes % 2.3 % (21.3-54.2); Mean Corpuscular HGB Conc 32.5 GM/DL (32-36); Mean Corpuscular Hemoglobin 30 PG (27-34); Mean Platelet Volume 11.1 FL (9.6-12.0); Monocytes # 0.4 10*3/uL (0.11-0.8); Monocytes % 2.5 % (1.7-12.7); Neutrophils # 14.9 10*3/uL (1.4-7.4); Neutrophils % 93.7 % (38.7-73.9); Platelet Count 128 T/CUMM (130-400); Red Cell Distribution Width 15.3 % (9.3-17.3); White Blood Count 15.9 T/CUMM (4-12)
[2017-08-17] MEDS ORDERED: ONDANSETRON 4 MG/2 ML VIAL ONE (18:13)
[2017-08-17 18:23] LABS: Partial Thromboplastin Time 38.7 SECS (0-40)
[2017-08-17 18:28] LABS: INR 2.4
[2017-08-17 18:32] LABS: Albumin 3.1 G/DL (3.4-5.0); Bilirubin,Total 1.4 MG/DL (0.2-1.0); Calcium 8.4 MG/DL (8.5-10.1); Lactic Acid 3.6 MMOL/L (0.4-2.0); Total Protein 5.9 G/DL (6.4-8.3)
[2017-08-17 18:33] LABS: PT Patient Result 24.9 SECS; Potassium 3.7 MMOL/L (3.5-5.1)
[2017-08-17 18:34] LABS: Magnesium 1.6 MG/DL (1.8-2.4)
[2017-08-17 18:52] LABS: Apearance,Urine Slightly Hazy (Clear); Bacteria,Urine Occasional /HPF (Few); Bilirubin,Urine Negative (Negative); Blood, Urine Small mg/dL (Negative); Glucose,Urine (UA) Negative (Negative); Hyaline Casts,Urine 5 /LPF (0-3); Ketones,Urine Negative (Negative); Mucus,Urine Occasional /LPF (Occasional); Nitrite,Urine Negative (Negative); Protein,Urine 100 MG/DL; Urine Color Amber (Yellow); Urine Specific Gravity 1.013 (1.001-1.035); Urine Urobilinogen < 2.0 EU/DL (0.2-1.0); WBC,Urine 2 /HPF (0-6)
[2017-08-17] MEDS ORDERED: KETOROLAC 30 MG/1 ML VIAL IV STA (18:58)
[2017-08-17] MEDS ORDERED: KETOROLAC 30 MG/1 ML VIAL ONE (19:01)
[2017-08-17 19:35] LABS: Band Neutrophils 11 % (0-10); Lymphocytes 4 % (20-55); Segmented Neutrophils 84 % (50-85); Total Cells Counted 100
[2017-08-17 19:36] LABS: Platelet Estimate Adequate; Polychromasia Slight
[2017-08-17] MEDS ORDERED: CLORAZEPATE 3.75 MG TABLET PO PRN (20:17)
[2017-08-17 20:53] LABS: Free T4 (Free Thyroxine) 1.15 NG/DL (0.76-1.46); Thyroid Stimulating Hormone 0.918 uIU/ml (0.358-3.74)
[2017-08-17] MEDS ORDERED: ONDANSETRON 4 MG/2 ML VIAL IV PRN (20:53)
[2017-08-17] MEDS ORDERED: MAGNESIUM SULF RIDER 1 GM in PREMIX 1 EACH IV ONE (22:00)
[2017-08-17] MEDS: ATORVASTATIN 10 MG TABLET PO SCH (22:22)
[2017-08-17] MEDS: DEXTROSE 5% NACL 0.9% 1,000 ML IV SCH (22:22)
[2017-08-17] MEDS: AZTREONAM 500 MG in SYRINGE 1 EACH IV SCH (22:23)
[2017-08-17 23:25] LABS: Apearance,Urine CLOUDY (Clear); Bacteria,Urine Occasional /HPF (Few); Bilirubin,Urine Negative (Negative); Blood, Urine Small mg/dL (Negative); Glucose,Urine (UA) Negative (Negative); Granular Casts,Urine 3 /LPF (0-1); Hyaline Casts,Urine 22 /LPF (0-3); Ketones,Urine Negative (Negative); Mucus,Urine Occasional /LPF (Occasional); Nitrite,Urine Negative (Negative); Protein,Urine 100 MG/DL; Squamous Epithelial Cell,Urine Occasional /HPF (0-10); Urine Color Amber (Yellow); Urine Specific Gravity 1.013 (1.001-1.035); Urine Urobilinogen < 2.0 EU/DL (0.2-1.0); WBC,Urine 12 /HPF (0-6)
[2017-08-18 06:06] LABS: Basophils % 0.3 % (0.0-0.8); Eosinophils # 0.1 10*3/uL (0.0-0.87); Eosinophils % 0.6 % (0.00-10.9); Hematocrit 31.8 VOL% (35.7-47.0); Hemoglobin 10.3 GM/DL (12.0-16.0); Immature Granulocytes % 1.7 %; Immature Granulocytes Absolute 0.23 #; Lymphocytes # 0.5 10*3/uL (1.4-4.0); Lymphocytes % 3.4 % (21.3-54.2); Mean Corpuscular HGB Conc 32.4 GM/DL (32-36); Mean Corpuscular Hemoglobin 30 PG (27-34); Mean Corpuscular Volume 92.2 FL (87-102); Mean Platelet Volume 11.7 FL (9.6-12.0); Monocytes # 0.5 10*3/uL (0.11-0.8); Monocytes % 3.4 % (1.7-12.7); Neutrophils # 12.4 10*3/uL (1.4-7.4); Neutrophils % 90.6 % (38.7-73.9); Platelet Count 114 T/CUMM (130-400); Red Blood Count 3.45 MC/CUMM (3.8-5.5); Red Cell Distribution Width 15.5 % (9.3-17.3); White Blood Count 13.7 T/CUMM (4-12)
[2017-08-18 06:35] LABS: Band Neutrophils 10 % (0-10); Calcium 8.3 MG/DL (8.5-10.1); Eosinophils 1 % (0-10); Hypochromasia 1+; Lymphocytes 1 % (20-55); Osmolality,Calculated 297.7 MOS/KG (273-304); Ovalocytes Few; Potassium 4.1 MMOL/L (3.5-5.1); Segmented Neutrophils 81 % (50-85); Total Cells Counted 100
[2017-08-18 06:36] LABS: Microcytosis 1+; Platelet Estimate Adequate
[2017-08-18 06:41] LABS: Calcium 8.2 MG/DL (8.5-10.1); Magnesium 2.2 MG/DL (1.8-2.4); Osmolality,Calculated 299.6 MOS/KG (273-304); Potassium 4.1 MMOL/L (3.5-5.1); Risk Ratio 3.08; VLDL CHOLESTEROL 30.2 MG/DL
[2017-08-18] MEDS: DEXTROSE 5% NACL 0.9% 1,000 ML IV SCH (11:05)
[2017-08-18] MEDS: AZTREONAM 500 MG in SYRINGE 1 EACH IV SCH ×2 (11:15→21:41)
[2017-08-18] MEDS: SERTRALINE 50 MG TABLET PO SCH (11:20)
[2017-08-18] MEDS: METOPROLOL SUCCINATE XL 25 MG TABLET PO SCH (11:20)
[2017-08-18] MEDS: PANTOPRAZOLE 40 MG TABLET PO SCH (11:20)
[2017-08-18] MEDS: DIGOXIN 0.125 MG TABLET PO SCH (15:26)
[2017-08-18] MEDS: HYDROmorphone 2 MG/1 ML VIAL IV PRN (16:04)
[2017-08-18] MEDS: WARFARIN 2.5 MG TABLET PO SCH (17:59)
[2017-08-18] MEDS: ATORVASTATIN 10 MG TABLET PO SCH (21:39)
[2017-08-19] MEDS: DEXTROSE 5% NACL 0.9% 1,000 ML IV SCH (04:05)
[2017-08-19] MEDS: SERTRALINE 50 MG TABLET PO SCH (09:35)
[2017-08-19] MEDS: METOPROLOL SUCCINATE XL 25 MG TABLET PO SCH (09:35)
[2017-08-19] MEDS: PANTOPRAZOLE 40 MG TABLET PO SCH (09:35)
[2017-08-19] MEDS: AZTREONAM 500 MG in SYRINGE 1 EACH IV SCH ×2 (10:20→21:54)
[2017-08-19] MEDS: DIGOXIN 0.125 MG TABLET PO SCH (13:59)
[2017-08-19] MEDS: HYDROmorphone 2 MG/1 ML VIAL IV PRN (15:15)
[2017-08-19] MEDS: WARFARIN 2.5 MG TABLET PO SCH (18:35)
[2017-08-19] MEDS: ATORVASTATIN 10 MG TABLET PO SCH (20:47)
[2017-08-20] MEDS: PANTOPRAZOLE 40 MG TABLET PO SCH (09:06)
[2017-08-20] MEDS: SERTRALINE 50 MG TABLET PO SCH (09:06)
[2017-08-20] MEDS: AZTREONAM 500 MG in SYRINGE 1 EACH IV SCH ×2 (09:06→21:31)
[2017-08-20] MEDS: METOPROLOL SUCCINATE XL 25 MG TABLET PO SCH (09:06)
[2017-08-20 10:01] LABS: Basophils % 0.2 % (0.0-0.8); Eosinophils # 0.2 10*3/uL (0.0-0.87); Eosinophils % 2.6 % (0.00-10.9); Hematocrit 31.8 VOL% (35.7-47.0); Hemoglobin 10.3 GM/DL (12.0-16.0); Immature Granulocytes % 0.4 %; Immature Granulocytes Absolute 0.02 #; Lymphocytes # 0.8 10*3/uL (1.4-4.0); Lymphocytes % 13.1 % (21.3-54.2); Mean Corpuscular HGB Conc 32.4 GM/DL (32-36); Mean Corpuscular Hemoglobin 30 PG (27-34); Mean Platelet Volume 11.1 FL (9.6-12.0); Monocytes # 0.3 10*3/uL (0.11-0.8); Monocytes % 5.6 % (1.7-12.7); Neutrophils # 4.5 10*3/uL (1.4-7.4); Neutrophils % 78.1 % (38.7-73.9); Platelet Count 136 T/CUMM (130-400); Red Blood Count 3.42 MC/CUMM (3.8-5.5); Red Cell Distribution Width 15.5 % (9.3-17.3); White Blood Count 5.7 T/CUMM (4-12)
[2017-08-20] MEDS: DEXTROSE 5% NACL 0.9% 1,000 ML IV SCH (11:15)
[2017-08-20 11:19] LABS: Calcium 8.8 MG/DL (8.5-10.1); Magnesium 1.7 MG/DL (1.8-2.4); Osmolality,Calculated 291.6 MOS/KG (273-304); Potassium 3.9 MMOL/L (3.5-5.1)
[2017-08-20] MEDS: DIGOXIN 0.125 MG TABLET PO SCH (14:35)
[2017-08-20] MEDS: FUROSEMIDE 20 MG/2 ML VIAL IV SCH (15:13)
[2017-08-20] MEDS: WARFARIN 2.5 MG TABLET PO SCH (18:24)
[2017-08-20] MEDS: ATORVASTATIN 10 MG TABLET PO SCH (20:55)
[2017-08-21 07:24] LABS: Basophils % 0.6 % (0.0-0.8); Eosinophils # 0.2 10*3/uL (0.0-0.87); Eosinophils % 2.9 % (0.00-10.9); Hematocrit 34.5 VOL% (35.7-47.0); Hemoglobin 11.6 GM/DL (12.0-16.0); Immature Granulocytes % 0.4 %; Immature Granulocytes Absolute 0.02 #; Lymphocytes # 1.2 10*3/uL (1.4-4.0); Lymphocytes % 22.4 % (21.3-54.2); Mean Corpuscular HGB Conc 33.6 GM/DL (32-36); Mean Corpuscular Hemoglobin 30 PG (27-34); Mean Corpuscular Volume 89.8 FL (87-102); Mean Platelet Volume 11.2 FL (9.6-12.0); Monocytes # 0.6 10*3/uL (0.11-0.8); Monocytes % 10.5 % (1.7-12.7); Neutrophils # 3.3 10*3/uL (1.4-7.4); Neutrophils % 63.2 % (38.7-73.9); Platelet Count 172 T/CUMM (130-400); Red Blood Count 3.84 MC/CUMM (3.8-5.5); Red Cell Distribution Width 14.6 % (9.3-17.3); White Blood Count 5.2 T/CUMM (4-12)
[2017-08-21 07:50] LABS: Calcium 8.9 MG/DL (8.5-10.1); Magnesium 1.5 MG/DL (1.8-2.4); Osmolality,Calculated 282.1 MOS/KG (273-304); Potassium 3.6 MMOL/L (3.5-5.1)
[2017-08-21] MEDS: FUROSEMIDE 20 MG/2 ML VIAL IV SCH ×2 (09:38→15:31)
[2017-08-21] MEDS: SERTRALINE 50 MG TABLET PO SCH (09:39)
[2017-08-21] MEDS: METOPROLOL SUCCINATE XL 25 MG TABLET PO SCH (09:39)
[2017-08-21] MEDS: PANTOPRAZOLE 40 MG TABLET PO SCH (09:39)
[2017-08-21] MEDS: AZTREONAM 500 MG in SYRINGE 1 EACH IV SCH (09:56)
[2017-08-21] MEDS ORDERED: MAGNESIUM SULF RIDER 4 GM in PREMIX 1 EACH IV PRN (10:45)
[2017-08-21] MEDS ORDERED: MAGNESIUM SULF RIDER 2 GM in PREMIX 1 EACH IV PRN (10:45)
[2017-08-21] MEDS: DIGOXIN 0.125 MG TABLET PO SCH (13:34)
[2017-08-21] MEDS: WARFARIN 2.5 MG TABLET PO SCH (17:58)
[2017-08-21] MEDS: GABAPENTIN 100 MG CAPSULE PO SCH (20:55)
[2017-08-21] MEDS: ATORVASTATIN 10 MG TABLET PO SCH (20:55)
[2017-08-22 02:43] LABS: Calcium 8.8 MG/DL (8.5-10.1); Magnesium 1.9 MG/DL (1.8-2.4); Osmolality,Calculated 281.4 MOS/KG (273-304); Potassium 3.4 MMOL/L (3.5-5.1)
[2017-08-22] MEDS: FUROSEMIDE 20 MG/2 ML VIAL IV SCH ×2 (09:17→15:47)
[2017-08-22] MEDS: SERTRALINE 50 MG TABLET PO SCH (09:20)
[2017-08-22] MEDS: GABAPENTIN 100 MG CAPSULE PO SCH ×2 (09:20→22:13)
[2017-08-22] MEDS: DONEPEZIL 10 MG TABLET PO SCH (09:20)
[2017-08-22] MEDS: PANTOPRAZOLE 40 MG TABLET PO SCH (09:20)
[2017-08-22] MEDS: METOPROLOL SUCCINATE XL 25 MG TABLET PO SCH (09:21)
[2017-08-22] MEDS: DIGOXIN 0.125 MG TABLET PO SCH (15:46)
[2017-08-22] MEDS: WARFARIN 2.5 MG TABLET PO SCH (18:00)
[2017-08-22] MEDS: ATORVASTATIN 10 MG TABLET PO SCH (22:12)
[2017-08-23 07:10] LABS: Calcium 8.6 MG/DL (8.5-10.1); Osmolality,Calculated 286.1 MOS/KG (273-304); Potassium 3.3 MMOL/L (3.5-5.1)
[2017-08-23] MEDS ORDERED: BISACODYL 5 MG TABLET PO ONE (08:27)
[2017-08-23] MEDS ORDERED: POTASSIUM CHLORIDE 20 MEQ TABLET PO ONE (08:33)
[2017-08-23] MEDS: METOPROLOL SUCCINATE XL 25 MG TABLET PO SCH (09:25)
[2017-08-23] MEDS: DONEPEZIL 10 MG TABLET PO SCH (09:25)
[2017-08-23] MEDS: FUROSEMIDE 20 MG/2 ML VIAL IV SCH (09:26)
[2017-08-23] MEDS: PANTOPRAZOLE 40 MG TABLET PO SCH (09:26)
[2017-08-23] MEDS: GABAPENTIN 100 MG CAPSULE PO SCH (09:26)
[2017-08-23] MEDS: SERTRALINE 50 MG TABLET PO SCH (09:26)
[2017-08-23 11:41] VITALS: BP 116/72
== END 2017-08-23 13:02 | DRG 689 ==
LOC: EDUNIT# → EDBD → N.ED 16:56 → SUATTDRO 20:32 → N.EDINP 20:32 → N.5E 20:57
PROVIDERS: ADMIT Internal Medicine; ATTEND Internal Medicine